=== PATIENT | male | born 1985 | race African-American/Black ===

== ENCOUNTER 2019-04-02 10:23 | Inpatient (IN) ==
[2019-04-02 11:38] LABS: Basophils % 0.5 % (0.0-0.8); Eosinophils # 0.2 10*3/uL (0.0-0.87); Eosinophils % 2.5 % (0.00-10.9); Hemoglobin 7.4 GM/DL (14.0-18.0); Immature Granulocytes % 0.5 %; Immature Granulocytes Absolute 0.04 #; Lymphocytes # 1.3 10*3/uL (1.4-4.0); Lymphocytes % 14.7 % (21.2-54.2); Mean Corpuscular HGB Conc 30.8 GM/DL (32-36); Mean Corpuscular Volume 104.3 FL (87-102); Mean Platelet Volume 11.8 FL (9.6-12.0); Monocytes % 10.9 % (1.7-12.7); Neutrophils % 70.9 % (38.7-73.9); Platelet Count 142 T/CUMM (130-400); Red Cell Distribution Width 16.4 % (9.3-17.3); White Blood Count 8.8 T/CUMM (4-12)
[2019-04-02 11:53] LABS: Albumin 2.8 G/DL (3.4-5.0); Bilirubin,Total 0.4 MG/DL (0.2-1.0); Calcium 8.5 MG/DL (8.5-10.1); Osmolality,Calculated 298.5 MOS/KG (273-304)
[2019-04-02] MEDS ORDERED: hydrALAZINE 20 MG/1 ML VIAL ONE (12:15)
[2019-04-02] MEDS ORDERED: guaiFENesin 200 MG/10 ML UDCUP ONE (12:16)
[2019-04-02] MEDS ORDERED: ONDANSETRON 4 MG/2 ML VIAL ONE (12:16)
[2019-04-02] MEDS ORDERED: LACTULOSE 20 GM/30 ML UDCUP PO PRN (12:34)
[2019-04-02] MEDS ORDERED: BISACODYL 5 MG TABLET PO PRN (12:34)
[2019-04-02] MEDS ORDERED: guaiFENesin/DM ER 600-30 MG TABLET PO PRN (12:34)
[2019-04-02] MEDS ORDERED: ONDANSETRON 4 MG/2 ML VIAL IV PRN (12:34)
[2019-04-02] MEDS ORDERED: PROMETHAZINE 25 MG TABLET PO PRN (12:34)
[2019-04-02] MEDS ORDERED: ACETAMINOPHEN 325 MG TABLET PO PRN (12:34)
[2019-04-02] MEDS ORDERED: PROMETHAZINE 25 MG/1 ML VIAL IM PRN (12:34)
[2019-04-02] MEDS ORDERED: ONDANSETRON 4 MG/2 ML VIAL IV STA (12:38)
[2019-04-02] MEDS ORDERED: guaiFENesin 200 MG/10 ML UDCUP PO STA (12:38)
[2019-04-02] MEDS ORDERED: hydrALAZINE 20 MG/1 ML VIAL IV STA (12:41)
[2019-04-02] MEDS ORDERED: levETIRAcetam 500 MG TABLET PO SCH (13:00)
[2019-04-02] MEDS ORDERED: hydrALAZINE 20 MG/1 ML VIAL IV PRN (13:58)
[2019-04-02] MEDS ORDERED: oxyCODONE IR 5 MG TABLET PO PRN (14:08)
[2019-04-02] MEDS ORDERED: ALBUTEROL 2.5 MG/3 ML NEB RESP TX PRN (14:36)
[2019-04-02 16:13] LABS: Hepatitis B Core IgM Quant < 0.05 Index; Hepatitis B Surface Ag Quant < 0.10 Index; Hepatitis B Surface Ag Result Negative (Negative); Hepatitis C Virus Ab Result Negative (Negative)
[2019-04-02] MEDS ORDERED: SEVELAMER CARBONATE 800 MG TABLET PO SCH (17:00)
[2019-04-02] MEDS: CARVEDILOL 25 MG TABLET PO SCH (18:53)
[2019-04-02] MEDS: SEVELAMER CARBONATE 800 MG TABLET PO SCH ×2 (18:53→21:17)
[2019-04-02] MEDS: amLODIPine 10 MG TABLET PO SCH (18:53)
[2019-04-02] MEDS: PANTOPRAZOLE 40 MG TABLET PO SCH (18:53)
[2019-04-02] MEDS: LACOSAMIDE 50 MG TABLET PO SCH ×2 (18:54→21:17)
[2019-04-02] MEDS ORDERED: LACOSAMIDE 100 MG PO SCH (21:00)
[2019-04-02] MEDS ORDERED: LAMIVUDINE PO SCH (21:00)
[2019-04-02] MEDS ORDERED: valACYclovir 500 MG TABLET PO SCH (21:00)
[2019-04-02] MEDS: ZOLPIDEM 5 MG TABLET PO PRN (21:16)
[2019-04-02] MEDS: levETIRAcetam 500 MG TABLET PO SCH (21:17)
[2019-04-02] MEDS: LAMIVUDINE 10 MG/ML PO SCH (21:35)
[2019-04-03 05:13] LABS: Basophils % 0.4 % (0.0-0.8); Eosinophils # 0.1 10*3/uL (0.0-0.87); Eosinophils % 1.2 % (0.00-10.9); Hematocrit 24.3 VOL% (42.0-52.0); Hemoglobin 7.6 GM/DL (14.0-18.0); Immature Granulocytes % 0.4 %; Immature Granulocytes Absolute 0.03 #; Lymphocytes # 1.6 10*3/uL (1.4-4.0); Mean Corpuscular HGB Conc 31.3 GM/DL (32-36); Mean Corpuscular Volume 102.1 FL (87-102); Mean Platelet Volume 12.4 FL (9.6-12.0); Monocytes % 13.6 % (1.7-12.7); Neutrophils % 63.4 % (38.7-73.9); Platelet Count 129 T/CUMM (130-400); Red Blood Count 2.38 MC/CUMM (3.8-5.5); Red Cell Distribution Width 16.7 % (9.3-17.3); White Blood Count 7.8 T/CUMM (4-12)
[2019-04-03 05:18] LABS: Albumin 2.7 G/DL (3.4-5.0); Bilirubin,Total 0.6 MG/DL (0.2-1.0); Calcium 8.5 MG/DL (8.5-10.1)
[2019-04-03] MEDS ORDERED: LISINOPRIL 10 MG TABLET PO SCH (09:00)
[2019-04-03] MEDS: LISINOPRIL 10 MG TABLET PO SCH (13:46)
[2019-04-03] MEDS: LACOSAMIDE 50 MG TABLET PO SCH ×2 (13:46→21:17)
[2019-04-03] MEDS: SEVELAMER CARBONATE 800 MG TABLET PO SCH ×4 (13:47→21:17)
[2019-04-03] MEDS: CARVEDILOL 25 MG TABLET PO SCH ×2 (13:47→18:34)
[2019-04-03] MEDS: amLODIPine 10 MG TABLET PO SCH (13:47)
[2019-04-03] MEDS: levETIRAcetam 500 MG TABLET PO SCH ×2 (13:48→21:17)
[2019-04-03] MEDS: PANTOPRAZOLE 40 MG TABLET PO SCH (13:48)
[2019-04-03] MEDS: ZOLPIDEM 5 MG TABLET PO PRN (21:17)
[2019-04-03] MEDS: LAMIVUDINE 10 MG/ML PO SCH (21:17)
[2019-04-03] MEDS ORDERED: METOPROLOL TARTRATE 5 MG/5 ML VIAL IV ONE (21:49)
[2019-04-04 05:41] LABS: Basophils # 0.1 10*3/uL (0.0-0.2); Basophils % 1.3 % (0.0-0.8); Eosinophils # 0.2 10*3/uL (0.0-0.87); Eosinophils % 3.4 % (0.00-10.9); Hematocrit 26.1 VOL% (42.0-52.0); Immature Granulocytes % 2.1 %; Lymphocytes # 1.2 10*3/uL (1.4-4.0); Mean Corpuscular HGB Conc 30.7 GM/DL (32-36); Mean Corpuscular Volume 106.5 FL (87-102); Mean Platelet Volume 12.7 FL (9.6-12.0); Monocytes % 16.2 % (1.7-12.7); Platelet Count 93 T/CUMM (130-400); Red Blood Count 2.45 MC/CUMM (3.8-5.5); Red Cell Distribution Width 16.5 % (9.3-17.3); White Blood Count 4.7 T/CUMM (4-12)
[2019-04-04 05:55] LABS: Calcium 8.6 MG/DL (8.5-10.1); Osmolality,Calculated 285.5 MOS/KG (273-304)
[2019-04-04 06:35] LABS: Anisocytosis 1+; Lymphocytes 28 % (20-55); Platelet Estimate Decreased; Segmented Neutrophils 55 % (50-85); Total Cells Counted 100
[2019-04-04 08:45] VITALS: BP 158/105
[2019-04-04] MEDS: LISINOPRIL 10 MG TABLET PO SCH (09:02)
[2019-04-04] MEDS: amLODIPine 10 MG TABLET PO SCH (09:02)
[2019-04-04] MEDS: PANTOPRAZOLE 40 MG TABLET PO SCH (09:02)
[2019-04-04] MEDS: SEVELAMER CARBONATE 800 MG TABLET PO SCH (09:02)
[2019-04-04] MEDS: LACOSAMIDE 50 MG TABLET PO SCH (09:02)
[2019-04-04] MEDS: levETIRAcetam 500 MG TABLET PO SCH (09:02)
[2019-04-04] MEDS: CARVEDILOL 25 MG TABLET PO SCH (09:02)
== END 2019-04-04 11:40 | disposition home or self-care (01) | DRG 291 ==
LOC: EDBD → N.ED 10:23 → N.EDINP 12:34 → SUATTDRO 12:34 → N.TELEN 13:26
PROVIDERS: ADMIT Nurse Practitioner Acute Care; ATTEND Internal Medicine

== ENCOUNTER 2019-06-15 04:15 | Inpatient (IN) ==
[2019-06-15 05:05] LABS: Basophils % 0.1 % (0.0-0.8); Hematocrit 28.2 VOL% (42.0-52.0); Hemoglobin 8.9 GM/DL (14.0-18.0); Immature Granulocytes % 1.1 %; Lymphocytes % 22.3 % (21.2-54.2); Mean Corpuscular HGB Conc 31.6 GM/DL (32-36); Mean Corpuscular Volume 100.7 FL (87-102); Mean Platelet Volume 13.9 FL (9.6-12.0); Monocytes % 5.7 % (1.7-12.7); NRBC # 0.02 10*3/uL; Neutrophils % 70.8 % (38.7-73.9); Platelet Count 74 T/CUMM (130-400); Red Cell Distribution Width 14.7 % (9.3-17.3); White Blood Count 8.8 T/CUMM (4-12)
[2019-06-15] MEDS ORDERED: MORPHINE 4 MG/1 ML VIAL IV STA (05:13)
[2019-06-15] MEDS ORDERED: ONDANSETRON 4 MG/2 ML VIAL IV ONE (05:13)
[2019-06-15 05:25] LABS: Band Neutrophils 5 % (0-10); Hypochromasia 1+; Lymphocytes 18 % (20-55); Platelet Estimate Decreased; Segmented Neutrophils 71 % (50-85); Total Cells Counted 100
[2019-06-15 05:32] LABS: Albumin 2.9 G/DL (3.4-5.0); Bilirubin,Total 0.5 MG/DL (0.2-1.0); Calcium 7.8 MG/DL (8.5-10.1); Osmolality,Calculated 284.1 MOS/KG (273-304); Total Protein 8.7 G/DL (6.4-8.3)
[2019-06-15] MEDS ORDERED: cefTRIAXone 1,000 MG in SODIUM CHLORIDE 0.9% 100 ML IV STA (06:02)
[2019-06-15] MEDS ORDERED: ONDANSETRON 4 MG/2 ML VIAL IV PRN (07:49)
[2019-06-15] MEDS ORDERED: ACETAMINOPHEN 325 MG TABLET PO PRN (07:49)
[2019-06-15] MEDS ORDERED: PROMETHAZINE 25 MG TABLET PO PRN (07:49)
[2019-06-15] MEDS ORDERED: VANCOMYCIN INJ 1,000 MG in SODIUM CHLORIDE 0.9% 250 ML IV ONE (07:51)
[2019-06-15] MEDS ORDERED: SKIN HEALING OINT (AQUAPHOR) 50 GM TUBE TOP PRN (07:54)
[2019-06-15] MEDS ORDERED: LACOSAMIDE 50 MG TABLET PO SCH (09:00)
[2019-06-15] MEDS ORDERED: CARVEDILOL 25 MG TABLET PO SCH (09:00)
[2019-06-15] MEDS ORDERED: levETIRAcetam 500 MG TABLET PO SCH ×2 (09:00→17:00)
[2019-06-15] MEDS ORDERED: PANTOPRAZOLE 40 MG TABLET PO SCH (09:00)
[2019-06-15] MEDS ORDERED: LORATADINE 10 MG TABLET PO SCH (09:00)
[2019-06-15] MEDS ORDERED: TRIAMCINOLONE 0.1% CREAM 15 GM TUBE TOP SCH (09:00)
[2019-06-15] MEDS ORDERED: guaiFENesin/DM ER 600-30 MG TABLET PO SCH (09:00)
[2019-06-15 10:04] VITALS: BP 127/83
[2019-06-15] MEDS ORDERED: MEROPENEM 500 MG in SYRINGE 1 EACH IV SCH (10:05)
[2019-06-15] MEDS ORDERED: VANCOMYCIN INJ 500 MG in SODIUM CHLORIDE 0.9% 100 ML IV PRN (10:09)
[2019-06-15] MEDS ORDERED: VANCOMYCIN INJ 1,500 MG in SODIUM CHLORIDE 0.9% 500 ML IV ONE (10:30)
[2019-06-15] MEDS ORDERED: SEVELAMER CARBONATE 800 MG TABLET PO SCH (12:00)
[2019-06-15] MEDS ORDERED: ALBUTEROL/IPRATROPIUM 3 ML NEB RESP TX SCH (13:00)
[2019-06-15 13:16] LABS: Hepatitis B Core IgM Quant < 0.05 Index; Hepatitis B Surface Ag Quant < 0.10 Index; Hepatitis B Surface Ag Result Negative (Negative); Hepatitis C Virus Ab Quant 0.16 Index; Hepatitis C Virus Ab Result Negative (Negative)
[2019-06-15] MEDS ORDERED: valACYclovir 500 MG TABLET PO SCH (17:00)
[2019-06-15] MEDS ORDERED: LAMIVUDINE PO SCH (21:00)
[2019-06-15] MEDS ORDERED: amLODIPine 10 MG TABLET PO SCH (21:00)
== END 2019-06-15 11:30 | disposition left against medical advice (07) | DRG 193 ==
LOC: N.ED 04:15 → N.EDINP 07:49 → N.5E 09:29
PROVIDERS: ADMIT Internal Medicine; ATTEND Internal Medicine

== ENCOUNTER 2019-07-31 11:52 | Inpatient (IN) ==
[2019-07-31] MEDS ORDERED: MORPHINE 4 MG/1 ML VIAL IV ONE (13:46)
[2019-07-31] MEDS ORDERED: ONDANSETRON 4 MG/2 ML VIAL IV ONE (13:46)
[2019-07-31 14:23] LABS: Basophils % 0.2 % (0.0-0.8); Hematocrit 28.3 VOL% (42.0-52.0); Hemoglobin 8.8 GM/DL (14.0-18.0); Immature Granulocytes % 0.6 %; Immature Granulocytes Absolute 0.06 #; Lymphocytes # 1.6 10*3/uL (1.4-4.0); Lymphocytes % 16.3 % (21.2-54.2); Mean Corpuscular HGB Conc 31.1 GM/DL (32-36); Mean Corpuscular Volume 106.4 FL (87-102); Mean Platelet Volume 12.3 FL (9.6-12.0); Monocytes % 5.4 % (1.7-12.7); NRBC # 0.23 10*3/uL; Neutrophils % 77.5 % (38.7-73.9); Platelet Count 181 T/CUMM (130-400); Red Blood Count 2.66 MC/CUMM (3.8-5.5); Red Cell Distribution Width 18.8 % (9.3-17.3); White Blood Count 9.8 T/CUMM (4-12)
[2019-07-31 14:29] LABS: INR 1.9
[2019-07-31 14:36] LABS: Albumin 3.3 G/DL (3.4-5.0); Bilirubin,Total 1.7 MG/DL (0.2-1.0); CKMB % 3.5 %; Calcium 8.9 MG/DL (8.5-10.1); Total Protein 8.9 G/DL (6.4-8.3)
[2019-07-31 14:37] LABS: Troponin I 0.712 NG/ML (0.00-0.045)
[2019-07-31] MEDS ORDERED: methylPREDNISolone SOD SUC 125 MG/2 ML VIAL IV STA (15:02)
[2019-07-31] MEDS ORDERED: PROMETHAZINE 25 MG/1 ML VIAL IM STA (15:03)
[2019-07-31] MEDS ORDERED: ACETAMINOPHEN 325 MG TABLET PO PRN (16:39)
[2019-07-31] MEDS ORDERED: LACTULOSE 20 GM/30 ML UDCUP PO PRN (16:39)
[2019-07-31] MEDS ORDERED: hydrALAZINE 20 MG/1 ML VIAL IV PRN (16:53)
[2019-07-31] MEDS ORDERED: MORPHINE 4 MG/1 ML VIAL IV PRN (16:57)
[2019-07-31 17:18] LABS: Thyroid Stimulating Hormone 8.37 uIU/ml (0.358-3.74)
[2019-07-31] MEDS: FAMOTIDINE 20 MG/2 ML VIAL IV SCH (18:36)
[2019-07-31] MEDS: HEPARIN 5,000 UNIT/1 ML VIAL SUBCUT SCH (18:36)
[2019-07-31] MEDS: HYDROmorphone 2 MG/1 ML VIAL IV PRN (20:33)
[2019-07-31] MEDS: ONDANSETRON 4 MG/2 ML VIAL IV PRN (20:33)
[2019-08-01] MEDS: HEPARIN 5,000 UNIT/1 ML VIAL SUBCUT SCH (01:54)
[2019-08-01] MEDS: FAMOTIDINE 20 MG/2 ML VIAL IV SCH (05:47)
[2019-08-01 06:12] LABS: Basophils % 0.1 % (0.0-0.8); Hematocrit 28.6 VOL% (42.0-52.0); Hemoglobin 8.9 GM/DL (14.0-18.0); Immature Granulocytes Absolute 0.08 #; Lymphocytes # 0.9 10*3/uL (1.4-4.0); Lymphocytes % 11.8 % (21.2-54.2); Mean Corpuscular HGB Conc 31.1 GM/DL (32-36); Mean Corpuscular Volume 104.8 FL (87-102); Mean Platelet Volume 11.9 FL (9.6-12.0); Monocytes % 2.1 % (1.7-12.7); NRBC # 0.29 10*3/uL; Platelet Count 180 T/CUMM (130-400); Red Blood Count 2.73 MC/CUMM (3.8-5.5); Red Cell Distribution Width 19.4 % (9.3-17.3)
[2019-08-01 06:36] LABS: Hypochromasia 1+; Lymphocytes 9 % (20-55); Nucleated Red Blood Cells 3 (0-5); Platelet Estimate Adequate; Segmented Neutrophils 88 % (50-85); Total Cells Counted 100
[2019-08-01 07:59] LABS: Calcium 7.5 MG/DL (8.5-10.1); Osmolality,Calculated 319.2 MOS/KG (273-304); Risk Ratio 5.58; VLDL CHOLESTEROL 50.4 MG/DL
[2019-08-01] MEDS: HYDROmorphone 2 MG/1 ML VIAL IV PRN (08:28)
[2019-08-01] MEDS: ONDANSETRON 4 MG/2 ML VIAL IV PRN ×2 (08:29→21:11)
[2019-08-01] MEDS ORDERED: SODIUM POLYSTYRENE SULFATE 15 GM/60 ML BOTTLE PO ONE (08:43)
[2019-08-01] MEDS ORDERED: PROMETHAZINE 25 MG TABLET PO PRN (14:30)
[2019-08-01] MEDS: levETIRAcetam 500 MG TABLET PO SCH (17:36)
[2019-08-01] MEDS: SEVELAMER CARBONATE 800 MG TABLET PO SCH ×2 (17:36→20:58)
[2019-08-01] MEDS: amLODIPine 10 MG TABLET PO SCH (20:59)
[2019-08-01] MEDS: CARVEDILOL 25 MG TABLET PO SCH (20:59)
[2019-08-01] MEDS: DOCUSATE SODIUM 100 MG CAPSULE PO SCH (20:59)
[2019-08-01] MEDS: ZALEPLON 5 MG CAPSULE PO SCH (21:03)
[2019-08-01] MEDS: oxyCODONE ER 10 MG TABLET PO SCH (21:03)
[2019-08-02 05:31] LABS: Basophils % 0.1 % (0.0-0.8); Eosinophils % 0.3 % (0.00-10.9); Hematocrit 26.1 VOL% (42.0-52.0); Hemoglobin 8.3 GM/DL (14.0-18.0); Immature Granulocytes % 0.7 %; Immature Granulocytes Absolute 0.05 #; Lymphocytes # 0.7 10*3/uL (1.4-4.0); Lymphocytes % 9.6 % (21.2-54.2); Mean Corpuscular HGB Conc 31.8 GM/DL (32-36); Mean Corpuscular Volume 102.8 FL (87-102); Mean Platelet Volume 11.9 FL (9.6-12.0); Monocytes % 6.8 % (1.7-12.7); NRBC # 0.36 10*3/uL; Neutrophils % 82.5 % (38.7-73.9); Platelet Count 157 T/CUMM (130-400); Red Blood Count 2.54 MC/CUMM (3.8-5.5); White Blood Count 6.9 T/CUMM (4-12)
[2019-08-02 06:00] LABS: Calcium 7.3 MG/DL (8.5-10.1); Osmolality,Calculated 303.1 MOS/KG (273-304)
[2019-08-02 09:02] LABS: Albumin 2.7 G/DL (3.4-5.0); Bilirubin,Direct 0.53 MG/DL (0.0-0.20); Bilirubin,Indirect 0.5 MG/DL (0.0-1.0); Total Protein 7.7 G/DL (6.4-8.3)
[2019-08-02] MEDS: oxyCODONE ER 10 MG TABLET PO SCH ×2 (10:58→22:59)
[2019-08-02] MEDS: CARVEDILOL 25 MG TABLET PO SCH ×2 (10:58→23:00)
[2019-08-02] MEDS: SEVELAMER CARBONATE 800 MG TABLET PO SCH ×4 (10:58→23:01)
[2019-08-02] MEDS: levETIRAcetam 500 MG TABLET PO SCH (10:59)
[2019-08-02] MEDS: DOCUSATE SODIUM 100 MG CAPSULE PO SCH ×2 (10:59→23:00)
[2019-08-02] MEDS: FAMOTIDINE 20 MG/2 ML VIAL IV SCH (11:02)
[2019-08-02] MEDS: ABACAVIR PO SCH (11:21)
[2019-08-02] MEDS: [UNRECOGNIZED DRUG - OTHER] PO SCH (11:22)
[2019-08-02] MEDS: LORATADINE 10 MG TABLET PO SCH (11:22)
[2019-08-02] MEDS: SODIUM CHLORIDE 0.9% 250 ML IV SCH (15:15)
[2019-08-02] MEDS: ONDANSETRON 4 MG/2 ML VIAL IV PRN (22:00)
[2019-08-02] MEDS: ZALEPLON 5 MG CAPSULE PO SCH (23:00)
[2019-08-02] MEDS: cloNIDine 0.1 MG TABLET PO SCH (23:00)
[2019-08-02] MEDS: amLODIPine 10 MG TABLET PO SCH (23:09)
[2019-08-03] MEDS: SODIUM CHLORIDE 0.9% 250 ML IV SCH (02:29)
[2019-08-03 07:15] LABS: INR 1.2; PT Patient Result 13.2 SECS (9.6-12.2)
[2019-08-03 08:39] LABS: Total Protein,Peritoneal Fluid 5.3 G/DL
[2019-08-03 08:42] LABS: RBC,Peritoneal Fluid 18 T/CUMM
[2019-08-03 08:43] LABS: Eosinophils # 0.1 10*3/uL (0.0-0.87); Eosinophils % 2.7 % (0.00-10.9); Hematocrit 27.1 VOL% (42.0-52.0); Hemoglobin 8.7 GM/DL (14.0-18.0); Immature Granulocytes Absolute 0.04 #; Lymphocytes # 0.9 10*3/uL (1.4-4.0); Lymphocytes % 22.4 % (21.2-54.2); Mean Corpuscular HGB Conc 32.1 GM/DL (32-36); Mean Corpuscular Volume 103.8 FL (87-102); Mean Platelet Volume 11.6 FL (9.6-12.0); Monocytes % 11.4 % (1.7-12.7); NRBC # 0.13 10*3/uL; Neutrophils % 62.5 % (38.7-73.9); Red Blood Count 2.61 MC/CUMM (3.8-5.5); Red Cell Distribution Width 20.5 % (9.3-17.3)
[2019-08-03 08:46] LABS: Platelet Count 119 T/CUMM (130-400)
[2019-08-03 09:19] LABS: Albumin 2.4 G/DL (3.4-5.0); Bilirubin,Direct 0.38 MG/DL (0.0-0.20); Bilirubin,Indirect 0.3 MG/DL (0.0-1.0); Bilirubin,Total 0.7 MG/DL (0.2-1.0); Free T4 (Free Thyroxine) 0.91 NG/DL (0.76-1.46); Total Protein 7.2 G/DL (6.4-8.3)
[2019-08-03] MEDS: levETIRAcetam 500 MG TABLET PO SCH ×2 (11:47→16:38)
[2019-08-03] MEDS: SEVELAMER CARBONATE 800 MG TABLET PO SCH ×4 (11:47→21:03)
[2019-08-03] MEDS: CARVEDILOL 25 MG TABLET PO SCH ×2 (11:48→21:03)
[2019-08-03] MEDS: cloNIDine 0.1 MG TABLET PO SCH ×2 (11:48→21:04)
[2019-08-03] MEDS: LORATADINE 10 MG TABLET PO SCH (11:48)
[2019-08-03] MEDS: ABACAVIR PO SCH (11:48)
[2019-08-03] MEDS: DOCUSATE SODIUM 100 MG CAPSULE PO SCH ×2 (11:48→21:02)
[2019-08-03] MEDS: [UNRECOGNIZED DRUG - OTHER] PO SCH (11:48)
[2019-08-03] MEDS: FAMOTIDINE 20 MG/2 ML VIAL IV SCH (11:49)
[2019-08-03] MEDS ORDERED: PROPOFOL 200 MG/20 ML VIAL IV ONE (12:00)
[2019-08-03] MEDS ORDERED: LIDOCAINE 2% 5 ML VIAL ONE (12:00)
[2019-08-03] MEDS ORDERED: PHENYLEPHRINE 1 MG/10 ML SYRINGE IV ONE (12:00)
[2019-08-03] MEDS: oxyCODONE ER 10 MG TABLET PO SCH ×2 (12:06→21:02)
[2019-08-03] MEDS: FLUCONAZOLE INJ 100 MG in IV BAG 1 EACH IV SCH (12:07)
[2019-08-03] MEDS: PANTOPRAZOLE 40 MG VIAL IV SCH ×2 (12:07→21:03)
[2019-08-03] MEDS: FENOFIBRATE 145 MG TABLET PO SCH (13:08)
[2019-08-03 14:02] LABS: Basophils % 0.3 % (0.0-0.8); Eosinophils # 0.1 10*3/uL (0.0-0.87); Eosinophils % 1.8 % (0.00-10.9); Hematocrit 28.4 VOL% (42.0-52.0); Immature Granulocytes % 0.3 %; Immature Granulocytes Absolute 0.01 #; Lymphocytes # 0.9 10*3/uL (1.4-4.0); Lymphocytes % 21.6 % (21.2-54.2); Mean Corpuscular HGB Conc 31.7 GM/DL (32-36); Mean Platelet Volume 11.4 FL (9.6-12.0); Monocytes % 14.3 % (1.7-12.7); NRBC # 0.09 10*3/uL; Neutrophils % 61.7 % (38.7-73.9); Platelet Count 116 T/CUMM (130-400); Red Blood Count 2.68 MC/CUMM (3.8-5.5)
[2019-08-03] MEDS: amLODIPine 10 MG TABLET PO SCH (21:03)
[2019-08-03] MEDS: ZALEPLON 5 MG CAPSULE PO SCH (21:03)
[2019-08-04 06:42] LABS: Calcium 8.2 MG/DL (8.5-10.1); Osmolality,Calculated 299.5 MOS/KG (273-304)
[2019-08-04] MEDS: HYDROmorphone 2 MG/1 ML VIAL IV PRN ×2 (10:19→15:42)
[2019-08-04] MEDS: ONDANSETRON 4 MG/2 ML VIAL IV PRN ×2 (10:19→15:42)
[2019-08-04] MEDS: [UNRECOGNIZED DRUG - OTHER] PO SCH (11:09)
[2019-08-04] MEDS: SEVELAMER CARBONATE 800 MG TABLET PO SCH ×4 (11:09→21:20)
[2019-08-04] MEDS: ABACAVIR PO SCH (11:09)
[2019-08-04] MEDS: FLUCONAZOLE INJ 100 MG in IV BAG 1 EACH IV SCH (13:11)
[2019-08-04] MEDS: PANTOPRAZOLE 40 MG VIAL IV SCH ×2 (13:11→21:22)
[2019-08-04] MEDS: levETIRAcetam 500 MG TABLET PO SCH ×2 (15:30→15:33)
[2019-08-04] MEDS: LORATADINE 10 MG TABLET PO SCH (15:30)
[2019-08-04] MEDS: oxyCODONE ER 10 MG TABLET PO SCH ×2 (15:31→23:32)
[2019-08-04] MEDS: CARVEDILOL 25 MG TABLET PO SCH ×2 (15:31→21:20)
[2019-08-04] MEDS: cloNIDine 0.1 MG TABLET PO SCH ×2 (15:31→21:21)
[2019-08-04] MEDS: FENOFIBRATE 145 MG TABLET PO SCH (15:33)
[2019-08-04] MEDS: DOCUSATE SODIUM 100 MG CAPSULE PO SCH ×2 (15:33→21:30)
[2019-08-04] MEDS: SUCRALFATE 1 GM/10 ML UDCUP PO SCH ×3 (15:34→21:19)
[2019-08-04] MEDS: FAMOTIDINE 20 MG/2 ML VIAL IV SCH (15:34)
[2019-08-04] MEDS: amLODIPine 10 MG TABLET PO SCH (21:20)
[2019-08-04] MEDS: ZALEPLON 5 MG CAPSULE PO SCH (23:32)
[2019-08-05] MEDS: SUCRALFATE 1 GM/10 ML UDCUP PO SCH ×4 (08:25→21:29)
[2019-08-05] MEDS: FENOFIBRATE 145 MG TABLET PO SCH (08:26)
[2019-08-05] MEDS: CARVEDILOL 25 MG TABLET PO SCH ×2 (08:26→21:30)
[2019-08-05] MEDS: oxyCODONE ER 10 MG TABLET PO SCH (08:26)
[2019-08-05] MEDS: SEVELAMER CARBONATE 800 MG TABLET PO SCH ×4 (08:26→21:30)
[2019-08-05] MEDS: levETIRAcetam 500 MG TABLET PO SCH ×2 (08:26→16:54)
[2019-08-05] MEDS: LORATADINE 10 MG TABLET PO SCH (08:27)
[2019-08-05] MEDS: FAMOTIDINE 20 MG/2 ML VIAL IV SCH (08:27)
[2019-08-05] MEDS: cloNIDine 0.1 MG TABLET PO SCH ×2 (08:27→21:29)
[2019-08-05] MEDS: PANTOPRAZOLE 40 MG VIAL IV SCH ×2 (08:27→21:33)
[2019-08-05] MEDS: DOCUSATE SODIUM 100 MG CAPSULE PO SCH ×2 (08:27→21:29)
[2019-08-05] MEDS: ABACAVIR PO SCH (08:27)
[2019-08-05] MEDS: [UNRECOGNIZED DRUG - OTHER] PO SCH (08:27)
[2019-08-05] MEDS: ONDANSETRON 4 MG/2 ML VIAL IV PRN ×2 (08:33→18:18)
[2019-08-05 10:30] LABS: Basophils % 0.5 % (0.0-0.8); Eosinophils # 0.1 10*3/uL (0.0-0.87); Eosinophils % 3.1 % (0.00-10.9); Hematocrit 30.4 VOL% (42.0-52.0); Hemoglobin 9.4 GM/DL (14.0-18.0); Immature Granulocytes % 0.2 %; Immature Granulocytes Absolute 0.01 #; Lymphocytes # 0.8 10*3/uL (1.4-4.0); Lymphocytes % 19.9 % (21.2-54.2); Mean Corpuscular HGB Conc 30.9 GM/DL (32-36); Mean Corpuscular Volume 105.2 FL (87-102); Mean Platelet Volume 11.7 FL (9.6-12.0); Monocytes % 10.4 % (1.7-12.7); NRBC # 0.03 10*3/uL; Neutrophils % 65.9 % (38.7-73.9); Platelet Count 103 T/CUMM (130-400); Red Blood Count 2.89 MC/CUMM (3.8-5.5); Red Cell Distribution Width 20.9 % (9.3-17.3); White Blood Count 4.2 T/CUMM (4-12)
[2019-08-05 10:52] LABS: Albumin 2.4 G/DL (3.4-5.0); Bilirubin,Total 0.7 MG/DL (0.2-1.0); Calcium 8.4 MG/DL (8.5-10.1); Osmolality,Calculated 287.7 MOS/KG (273-304); Total Protein 7.4 G/DL (6.4-8.3)
[2019-08-05] MEDS: FLUCONAZOLE INJ 100 MG in IV BAG 1 EACH IV SCH (12:15)
[2019-08-05] MEDS: HYDROmorphone 2 MG/1 ML VIAL IV PRN (18:17)
[2019-08-05] MEDS: amLODIPine 10 MG TABLET PO SCH (21:29)
[2019-08-06] MEDS: oxyCODONE ER 10 MG TABLET PO SCH ×4 (01:09→23:24)
[2019-08-06] MEDS: ZALEPLON 5 MG CAPSULE PO SCH ×2 (01:09→23:23)
[2019-08-06 05:39] LABS: Basophils % 0.5 % (0.0-0.8); Eosinophils # 0.2 10*3/uL (0.0-0.87); Eosinophils % 3.8 % (0.00-10.9); Hematocrit 29.5 VOL% (42.0-52.0); Hemoglobin 9.2 GM/DL (14.0-18.0); Immature Granulocytes % 0.5 %; Immature Granulocytes Absolute 0.02 #; Lymphocytes # 1.1 10*3/uL (1.4-4.0); Lymphocytes % 27.2 % (21.2-54.2); Mean Corpuscular HGB Conc 31.2 GM/DL (32-36); Mean Corpuscular Volume 104.2 FL (87-102); Mean Platelet Volume 11.5 FL (9.6-12.0); Monocytes % 11.3 % (1.7-12.7); Neutrophils % 56.7 % (38.7-73.9); Platelet Count 102 T/CUMM (130-400); Red Blood Count 2.83 MC/CUMM (3.8-5.5); Red Cell Distribution Width 19.9 % (9.3-17.3); White Blood Count 3.9 T/CUMM (4-12)
[2019-08-06 06:05] LABS: Calcium 8.3 MG/DL (8.5-10.1); Osmolality,Calculated 292.8 MOS/KG (273-304)
[2019-08-06] MEDS: DOCUSATE SODIUM 100 MG CAPSULE PO SCH ×2 (08:38→21:20)
[2019-08-06] MEDS: SUCRALFATE 1 GM/10 ML UDCUP PO SCH ×4 (08:38→21:19)
[2019-08-06] MEDS: FENOFIBRATE 145 MG TABLET PO SCH (08:38)
[2019-08-06] MEDS: SEVELAMER CARBONATE 800 MG TABLET PO SCH ×4 (08:38→21:20)
[2019-08-06] MEDS: levETIRAcetam 500 MG TABLET PO SCH (08:38)
[2019-08-06] MEDS: PANTOPRAZOLE 40 MG VIAL IV SCH ×2 (08:38→21:21)
[2019-08-06] MEDS: FAMOTIDINE 20 MG/2 ML VIAL IV SCH (08:39)
[2019-08-06] MEDS: FLUCONAZOLE INJ 100 MG in IV BAG 1 EACH IV SCH ×2 (08:39→10:16)
[2019-08-06] MEDS: LORATADINE 10 MG TABLET PO SCH (08:40)
[2019-08-06] MEDS: ABACAVIR PO SCH (08:40)
[2019-08-06] MEDS: [UNRECOGNIZED DRUG - OTHER] PO SCH (08:40)
[2019-08-06] MEDS: cloNIDine 0.1 MG TABLET PO SCH ×2 (09:59→21:20)
[2019-08-06] MEDS: CARVEDILOL 25 MG TABLET PO SCH ×2 (09:59→21:20)
[2019-08-06] MEDS: POLYETHYLENE GLYCOL POWDER 17 GM PACK PO SCH (12:22)
[2019-08-06] MEDS: NYSTATIN 500,000 UNIT/5 ML UDCUP SWISH/SWAL SCH ×2 (17:14→21:21)
[2019-08-06] MEDS: amLODIPine 10 MG TABLET PO SCH (21:20)
[2019-08-06 22:08] VITALS: BP 121/71
[2019-08-07 05:57] LABS: Basophils % 0.5 % (0.0-0.8); Eosinophils # 0.2 10*3/uL (0.0-0.87); Eosinophils % 3.8 % (0.00-10.9); Hemoglobin 9.2 GM/DL (14.0-18.0); Immature Granulocytes % 0.3 %; Immature Granulocytes Absolute 0.01 #; Lymphocytes % 25.1 % (21.2-54.2); Mean Corpuscular HGB Conc 31.7 GM/DL (32-36); Mean Corpuscular Volume 101.4 FL (87-102); Mean Platelet Volume 10.9 FL (9.6-12.0); Monocytes % 10.2 % (1.7-12.7); Neutrophils % 60.1 % (38.7-73.9); Platelet Count 105 T/CUMM (130-400); Red Blood Count 2.86 MC/CUMM (3.8-5.5); Red Cell Distribution Width 19.1 % (9.3-17.3); White Blood Count 3.9 T/CUMM (4-12)
[2019-08-07 06:28] LABS: Calcium 8.2 MG/DL (8.5-10.1)
[2019-08-07] MEDS: SEVELAMER CARBONATE 800 MG TABLET PO SCH (08:52)
[2019-08-07] MEDS: SUCRALFATE 1 GM/10 ML UDCUP PO SCH (08:52)
[2019-08-07] MEDS: DOCUSATE SODIUM 100 MG CAPSULE PO SCH (08:53)
[2019-08-07] MEDS: FENOFIBRATE 145 MG TABLET PO SCH (08:53)
[2019-08-07] MEDS: cloNIDine 0.1 MG TABLET PO SCH (08:53)
[2019-08-07] MEDS: NYSTATIN 500,000 UNIT/5 ML UDCUP SWISH/SWAL SCH (08:54)
[2019-08-07] MEDS: levETIRAcetam 500 MG TABLET PO SCH (08:54)
[2019-08-07] MEDS: CARVEDILOL 25 MG TABLET PO SCH (08:54)
[2019-08-07] MEDS: FAMOTIDINE 20 MG/2 ML VIAL IV SCH (08:55)
[2019-08-07] MEDS: PANTOPRAZOLE 40 MG VIAL IV SCH (08:55)
[2019-08-07] MEDS: POLYETHYLENE GLYCOL POWDER 17 GM PACK PO SCH (08:56)
[2019-08-07] MEDS: oxyCODONE ER 10 MG TABLET PO SCH (08:56)
== END 2019-08-07 09:30 | disposition home or self-care (01) | DRG 640 ==
LOC: N.EDINP 11:52 → N.ED 11:52 → N.5E 17:39 → SUATTDRO 08-01 14:18
PROVIDERS: ADMIT Hospitalist; ATTEND Internal Medicine

== ENCOUNTER 2019-09-05 18:42 | Observation (INO) ==
[2019-09-05] MEDS ORDERED: methylPREDNISolone SOD SUC 125 MG/2 ML VIAL IV STA (20:55)
[2019-09-05] MEDS ORDERED: ALBUTEROL/IPRATROPIUM 3 ML NEB RESP TX STA (20:55)
[2019-09-05 21:52] LABS: Basophils % 0.3 % (0.0-0.8); Eosinophils % 0.2 % (0.00-10.9); Hematocrit 34.6 VOL% (42.0-52.0); Hemoglobin 10.7 GM/DL (14.0-18.0); Immature Granulocytes % 0.4 %; Immature Granulocytes Absolute 0.04 #; Lymphocytes # 4.6 10*3/uL (1.4-4.0); Lymphocytes % 49.7 % (21.2-54.2); Mean Corpuscular HGB Conc 30.9 GM/DL (32-36); Mean Corpuscular Volume 102.1 FL (87-102); Mean Platelet Volume 12.5 FL (9.6-12.0); Monocytes % 7.3 % (1.7-12.7); NRBC # 0.19 10*3/uL; Neutrophils % 42.1 % (38.7-73.9); Platelet Count 113 T/CUMM (130-400); Red Blood Count 3.39 MC/CUMM (3.8-5.5); Red Cell Distribution Width 18.5 % (9.3-17.3); White Blood Count 9.3 T/CUMM (4-12)
[2019-09-05 22:09] LABS: INR 1.1; PT Patient Result 11.5 SECS (9.6-12.2)
[2019-09-05 22:13] LABS: Bilirubin,Total 0.8 MG/DL (0.2-1.0); Calcium 8.5 MG/DL (8.5-10.1); Osmolality,Calculated 295.4 MOS/KG (273-304); Total Protein 9.5 G/DL (6.4-8.3)
[2019-09-05] MEDS ORDERED: hydrALAZINE 20 MG/1 ML VIAL IV STA ×2 (22:25→23:48)
[2019-09-05] MEDS ORDERED: MORPHINE 4 MG/1 ML VIAL ONE (22:54)
[2019-09-05] MEDS ORDERED: MORPHINE 4 MG/1 ML VIAL IV STA (22:59)
[2019-09-06] MEDS ORDERED: NICOTINE 21 MG/24 HR PATCH TRANSDERM PRN (00:51)
[2019-09-06] MEDS ORDERED: ONDANSETRON 4 MG/2 ML VIAL IV PRN (00:51)
[2019-09-06] MEDS ORDERED: MORPHINE 4 MG/1 ML VIAL IV PRN (00:51)
[2019-09-06 05:22] LABS: Albumin 2.7 G/DL (3.4-5.0); Bilirubin,Total 0.8 MG/DL (0.2-1.0); Calcium 8.4 MG/DL (8.5-10.1); Osmolality,Calculated 302.3 MOS/KG (273-304); Total Protein 8.6 G/DL (6.4-8.3)
[2019-09-06] MEDS ORDERED: [UNRECOGNIZED DRUG - OTHER] PO SCH (09:00)
[2019-09-06] MEDS ORDERED: ABACAVIR PO SCH (09:00)
[2019-09-06] MEDS: SUCRALFATE 1 GM/10 ML UDCUP PO SCH ×3 (09:11→17:28)
[2019-09-06] MEDS: SEVELAMER CARBONATE 800 MG TABLET PO SCH ×3 (09:11→16:07)
[2019-09-06] MEDS: DOCUSATE SODIUM 100 MG CAPSULE PO SCH (09:12)
[2019-09-06] MEDS: LORATADINE 10 MG TABLET PO SCH (09:12)
[2019-09-06] MEDS: levETIRAcetam 500 MG TABLET PO SCH (09:12)
[2019-09-06] MEDS: cloNIDine 0.1 MG TABLET PO SCH (09:12)
[2019-09-06] MEDS: carvediloL 25 MG TABLET PO SCH ×2 (09:12→17:28)
[2019-09-06] MEDS: oxyCODONE/ACETAMINOPHEN 5-325 MG TABLET PO SCH ×2 (09:17→21:05)
[2019-09-06] MEDS: SEVELAMER CARBONATE POWDER 2.4 GM PACK PO SCH ×2 (09:17→15:15)
[2019-09-06] MEDS: methylPREDNISolone SOD SUC 40 MG/1 ML VIAL IV SCH (12:14)
[2019-09-06] MEDS: ALBUTEROL/IPRATROPIUM 3 ML NEB RESP TX SCH ×2 (13:42→20:05)
[2019-09-06] MEDS: AZITHROMYCIN INJ 500 MG in SODIUM CHLORIDE 0.9% 250 ML IV SCH (14:57)
[2019-09-06] MEDS: BENZONATATE 100 MG CAPSULE PO SCH (15:15)
[2019-09-06] MEDS ORDERED: ZOLPIDEM 5 MG TABLET PO SCH (21:00)
[2019-09-06] MEDS ORDERED: amLODIPine 10 MG TABLET PO SCH (21:00)
[2019-09-06] MEDS ORDERED: NON-FORMULARY MEDICATION (Zolpidem [Ambien] 10 MG) PO SCH (21:00)
[2019-09-06] MEDS: hydrALAZINE 20 MG/1 ML VIAL IV PRN (23:28)
[2019-09-07] MEDS: ALBUTEROL/IPRATROPIUM 3 ML NEB RESP TX SCH ×2 (00:33→07:40)
[2019-09-07] MEDS ORDERED: levETIRAcetam 500 MG TABLET PO SCH (00:53)
[2019-09-07] MEDS: methylPREDNISolone SOD SUC 40 MG/1 ML VIAL IV SCH ×3 (01:43→13:45)
[2019-09-07] MEDS: DOCUSATE SODIUM 100 MG CAPSULE PO SCH ×2 (01:44→13:44)
[2019-09-07] MEDS: cloNIDine 0.1 MG TABLET PO SCH ×2 (01:44→13:44)
[2019-09-07] MEDS: SEVELAMER CARBONATE POWDER 2.4 GM PACK PO SCH ×2 (01:44→08:29)
[2019-09-07] MEDS: SEVELAMER CARBONATE 800 MG TABLET PO SCH ×2 (01:44→13:45)
[2019-09-07] MEDS: SUCRALFATE 1 GM/10 ML UDCUP PO SCH ×3 (01:44→13:45)
[2019-09-07] MEDS: BENZONATATE 100 MG CAPSULE PO SCH ×2 (01:45→13:45)
[2019-09-07] MEDS ORDERED: hydrALAZINE 20 MG/1 ML VIAL IV ONE (02:45)
[2019-09-07] MEDS: hydrALAZINE 20 MG/1 ML VIAL IV PRN (03:01)
[2019-09-07 04:07] LABS: Basophils % 0.2 % (0.0-0.8); Hematocrit 35.1 VOL% (42.0-52.0); Hemoglobin 10.5 GM/DL (14.0-18.0); Immature Granulocytes % 1.3 %; Immature Granulocytes Absolute 0.08 #; Lymphocytes # 1.4 10*3/uL (1.4-4.0); Lymphocytes % 23.7 % (21.2-54.2); Mean Corpuscular HGB Conc 29.9 GM/DL (32-36); Mean Corpuscular Volume 103.8 FL (87-102); Mean Platelet Volume 12.8 FL (9.6-12.0); Monocytes % 3.2 % (1.7-12.7); NRBC # 0.37 10*3/uL; Neutrophils % 71.6 % (38.7-73.9); Platelet Count 106 T/CUMM (130-400); Red Blood Count 3.38 MC/CUMM (3.8-5.5); Red Cell Distribution Width 18.8 % (9.3-17.3)
[2019-09-07 04:35] LABS: Atypical Lymphocytes Few; Hypochromasia Slight; Lymphocytes 19 % (20-55); Nucleated Red Blood Cells 5 (0-5); Ovalocytes Slight; Polychromasia Slight; Segmented Neutrophils 80 % (50-85); Total Cells Counted 100
[2019-09-07 04:36] LABS: Macrocytosis 1+
[2019-09-07 04:37] LABS: Anisocytosis 1+; Platelet Estimate Decreased
[2019-09-07 04:41] LABS: Albumin 2.9 G/DL (3.4-5.0); Bilirubin,Total 1.4 MG/DL (0.2-1.0); Calcium 8.9 MG/DL (8.5-10.1); Osmolality,Calculated 305.7 MOS/KG (273-304); Total Protein 8.8 G/DL (6.4-8.3)
[2019-09-07 07:52] VITALS: BP 144/96
[2019-09-07] MEDS ORDERED: SODIUM POLYSTYRENE SULFATE 15 GM/60 ML BOTTLE PO ONE (08:03)
[2019-09-07] MEDS: LORATADINE 10 MG TABLET PO SCH (13:44)
[2019-09-07] MEDS: levETIRAcetam 500 MG TABLET PO SCH (13:44)
[2019-09-07] MEDS: carvediloL 25 MG TABLET PO SCH (13:44)
[2019-09-07] MEDS: oxyCODONE/ACETAMINOPHEN 5-325 MG TABLET PO SCH (13:45)
[2019-09-07] MEDS: AZITHROMYCIN INJ 500 MG in SODIUM CHLORIDE 0.9% 250 ML IV SCH (13:45)
== END 2019-09-07 13:47 | disposition home or self-care (01) ==
LOC: N.EDINP 18:42 → N.ED 18:42 → SUATTDRO 09-06 00:51 → N.TELEN 09-06 02:00
PROVIDERS: ATTEND Internal Medicine Cardiovascular Disease

== ENCOUNTER 2019-10-21 01:52 | Observation (INO) ==
[2019-10-21] MEDS ORDERED: ASPIRIN 325 MG TABLET PO STA (02:46)
[2019-10-21] MEDS ORDERED: NITROGLYCERIN 2% OINT 1 INCH/GM PACK TOP STA (02:46)
[2019-10-21 02:58] LABS: Basophils % 0.4 % (0.0-0.8); Eosinophils # 0.2 10*3/uL (0.0-0.87); Eosinophils % 4.2 % (0.00-10.9); Hematocrit 30.6 VOL% (42.0-52.0); Hemoglobin 9.8 GM/DL (14.0-18.0); Immature Granulocytes % 0.6 %; Immature Granulocytes Absolute 0.03 #; Lymphocytes # 1.8 10*3/uL (1.4-4.0); Mean Corpuscular Volume 95.9 FL (87-102); Mean Platelet Volume 13.2 FL (9.6-12.0); Monocytes % 7.4 % (1.7-12.7); Neutrophils % 49.4 % (38.7-73.9); Red Blood Count 3.19 MC/CUMM (3.8-5.5); White Blood Count 4.8 T/CUMM (4-12)
[2019-10-21 03:00] LABS: Platelet Count 67 T/CUMM (130-400)
[2019-10-21 03:11] LABS: PT Patient Result 10.8 SECS (9.6-12.2)
[2019-10-21 03:16] LABS: Bilirubin,Total 0.4 MG/DL (0.2-1.0); Calcium 6.9 MG/DL (8.5-10.1); Osmolality,Calculated 297.7 MOS/KG (273-304); Total Protein 8.3 G/DL (6.4-8.3)
[2019-10-21 03:21] LABS: Hypochromasia 2+; Ovalocytes 1+; Platelet Estimate Decreased
[2019-10-21] MEDS ORDERED: ONDANSETRON 4 MG/2 ML VIAL IV PRN (04:00)
[2019-10-21] MEDS ORDERED: DOCUSATE SODIUM 100 MG CAPSULE PO PRN (04:00)
[2019-10-21] MEDS ORDERED: ACETAMINOPHEN 325 MG TABLET PO PRN (04:00)
[2019-10-21] MEDS ORDERED: guaiFENesin/DM ER 600-30 MG TABLET PO PRN (04:00)
[2019-10-21] MEDS ORDERED: hydrALAZINE 20 MG/1 ML VIAL IV PRN (04:03)
[2019-10-21] MEDS: MORPHINE 4 MG/1 ML VIAL IV PRN ×3 (05:33→21:10)
[2019-10-21] MEDS ORDERED: CLOPIDOGREL 300 MG TABLET PO ONE (05:38)
[2019-10-21] MEDS ORDERED: HEPARIN 5,000 UNIT/1 ML VIAL IV ONE (05:54)
[2019-10-21] MEDS ORDERED: HEPARIN DRIP 25,000 UNITS/500 ML PREMIX IV SCH (06:00)
[2019-10-21 07:14] LABS: PT Patient Result 11.1 SECS (9.6-12.2)
[2019-10-21] MEDS: GABAPENTIN 100 MG CAPSULE PO SCH ×4 (09:46→21:03)
[2019-10-21] MEDS: levETIRAcetam 500 MG TABLET PO SCH (09:46)
[2019-10-21] MEDS: LORATADINE 10 MG TABLET PO SCH (09:46)
[2019-10-21] MEDS: SEVELAMER CARBONATE 800 MG TABLET PO SCH ×5 (09:46→21:00)
[2019-10-21] MEDS: AZITHROMYCIN 250 MG TABLET PO SCH (09:46)
[2019-10-21] MEDS: cloNIDine 0.1 MG TABLET PO SCH ×2 (09:47→21:04)
[2019-10-21] MEDS: carvediloL 3.125 MG TABLET PO SCH ×3 (09:48→21:09)
[2019-10-21] MEDS: methylPREDNISolone SOD SUC 40 MG/1 ML VIAL IV SCH ×2 (09:48→21:09)
[2019-10-21] MEDS: DOCUSATE SODIUM 100 MG CAPSULE PO SCH ×2 (10:04→21:02)
[2019-10-21] MEDS: ALBUTEROL/IPRATROPIUM 3 ML NEB RESP TX SCH ×4 (10:50→23:20)
[2019-10-21] MEDS: SUCRALFATE 1 GM/10 ML UDCUP PO SCH ×3 (12:15→21:04)
[2019-10-21] MEDS ORDERED: levETIRAcetam 500 MG TABLET PO SCH (18:00)
[2019-10-21] MEDS ORDERED: [UNRECOGNIZED DRUG - OTHER] PO SCH (21:00)
[2019-10-21] MEDS ORDERED: ABACAVIR PO SCH (21:00)
[2019-10-21] MEDS ORDERED: ZALEPLON 5 MG CAPSULE PO SCH (21:00)
[2019-10-21] MEDS ORDERED: amLODIPine 10 MG TABLET PO SCH (21:00)
[2019-10-22] MEDS: ALBUTEROL/IPRATROPIUM 3 ML NEB RESP TX SCH ×2 (03:57→07:18)
[2019-10-22] MEDS: MORPHINE 4 MG/1 ML VIAL IV PRN (04:45)
[2019-10-22 06:35] LABS: Basophils % 0.2 % (0.0-0.8); Hematocrit 29.6 VOL% (42.0-52.0); Hemoglobin 9.6 GM/DL (14.0-18.0); Immature Granulocytes % 0.7 %; Immature Granulocytes Absolute 0.03 #; Lymphocytes # 1.2 10*3/uL (1.4-4.0); Lymphocytes % 27.1 % (21.2-54.2); Mean Corpuscular HGB Conc 32.4 GM/DL (32-36); Mean Corpuscular Volume 94.9 FL (87-102); Mean Platelet Volume 12.8 FL (9.6-12.0); Monocytes % 5.8 % (1.7-12.7); Neutrophils % 66.2 % (38.7-73.9); Platelet Count 64 T/CUMM (130-400); Red Blood Count 3.12 MC/CUMM (3.8-5.5); White Blood Count 4.3 T/CUMM (4-12)
[2019-10-22 06:58] LABS: Albumin 2.6 G/DL (3.4-5.0); Bilirubin,Total 0.8 MG/DL (0.2-1.0); Calcium 7.4 MG/DL (8.5-10.1); Osmolality,Calculated 286.8 MOS/KG (273-304); Risk Ratio 4.44; VLDL CHOLESTEROL 22.4 MG/DL
[2019-10-22 07:07] LABS: Lymphocytes 26 % (20-55); Platelet Estimate Decreased; Segmented Neutrophils 73 % (50-85); Total Cells Counted 100
[2019-10-22] MEDS: cloNIDine 0.1 MG TABLET PO SCH (09:01)
[2019-10-22] MEDS: GABAPENTIN 100 MG CAPSULE PO SCH (09:01)
[2019-10-22] MEDS: levETIRAcetam 500 MG TABLET PO SCH (09:01)
[2019-10-22] MEDS: LORATADINE 10 MG TABLET PO SCH (09:01)
[2019-10-22] MEDS: carvediloL 3.125 MG TABLET PO SCH (09:01)
[2019-10-22] MEDS: AZITHROMYCIN 250 MG TABLET PO SCH (09:01)
[2019-10-22] MEDS: SUCRALFATE 1 GM/10 ML UDCUP PO SCH (09:02)
[2019-10-22] MEDS: SEVELAMER CARBONATE 800 MG TABLET PO SCH (09:02)
[2019-10-22] MEDS: DOCUSATE SODIUM 100 MG CAPSULE PO SCH (09:02)
[2019-10-22] MEDS: methylPREDNISolone SOD SUC 40 MG/1 ML VIAL IV SCH (09:02)
[2019-10-22 10:08] VITALS: BP 136/90
== END 2019-10-22 11:01 | disposition home or self-care (01) ==
LOC: N.ED 01:52 → N.EDINP 01:52 → N.TELES 04:23
PROVIDERS: ADMIT Internal Medicine; ATTEND Internal Medicine

== ENCOUNTER 2019-11-05 11:22 | Inpatient (IN) ==
[2019-11-05] MEDS ORDERED: ONDANSETRON 4 MG/2 ML VIAL IV STA (11:55)
[2019-11-05] MEDS ORDERED: methylPREDNISolone SOD SUC 125 MG/2 ML VIAL IV STA (11:55)
[2019-11-05] MEDS ORDERED: ORPHENADRINE 60 MG/2 ML VIAL IV STA (11:57)
[2019-11-05 12:33] LABS: Basophils % 0.7 % (0.0-0.8); Eosinophils # 0.2 10*3/uL (0.0-0.87); Hematocrit 30.1 VOL% (42.0-52.0); Hemoglobin 9.5 GM/DL (14.0-18.0); Immature Granulocytes % 1.5 %; Immature Granulocytes Absolute 0.07 #; Lymphocytes # 1.3 10*3/uL (1.4-4.0); Lymphocytes % 28.9 % (21.2-54.2); Mean Corpuscular HGB Conc 31.6 GM/DL (32-36); Mean Platelet Volume 11.9 FL (9.6-12.0); Monocytes % 8.2 % (1.7-12.7); Neutrophils % 55.7 % (38.7-73.9); Platelet Count 119 T/CUMM (130-400); Red Blood Count 3.17 MC/CUMM (3.8-5.5); Red Cell Distribution Width 16.8 % (9.3-17.3); White Blood Count 4.6 T/CUMM (4-12)
[2019-11-05 12:59] LABS: Alanine Aminotransferase 23 U/L (16-61); Albumin 2.9 G/DL (3.4-5.0); Alkaline Phosphatase 127 U/L (45-117); Aspartate Amino Transferase 31 U/L (0-37); Blood Urea Nitrogen 55 MG/DL (7-18); Calcium 8.5 MG/DL (8.5-10.1); Estimated Glom Filtration Rate 4 ML/MIN; Glucose 84 MG/DL (74-106); Osmolality,Calculated 288.7 MOS/KG (273-304); Total Protein 9.2 G/DL (6.4-8.3)
[2019-11-05 13:03] LABS: Troponin I 0.234 NG/ML (0.00-0.045)
[2019-11-05] MEDS ORDERED: AZITHROMYCIN INJ 500 MG in SODIUM CHLORIDE 0.9% 250 ML IV STA (14:39)
[2019-11-05] MEDS ORDERED: ALBUTEROL 2.5 MG/3 ML NEB RESP TX PRN (15:27)
[2019-11-05] MEDS ORDERED: guaiFENesin/DM ER 600-30 MG TABLET PO PRN (15:27)
[2019-11-05] MEDS ORDERED: ACETAMINOPHEN 325 MG TABLET PO PRN (15:27)
[2019-11-05] MEDS ORDERED: DOCUSATE SODIUM 100 MG CAPSULE PO PRN (15:27)
[2019-11-05] MEDS ORDERED: ONDANSETRON 4 MG/2 ML VIAL IV PRN (15:27)
[2019-11-05] MEDS ORDERED: traZODone 50 MG TABLET PO PRN (15:27)
[2019-11-05] MEDS ORDERED: ENOXAPARIN 30 MG/0.3 ML SYRINGE SUBCUT SCH (15:30)
[2019-11-05] MEDS ORDERED: LEVOFLOXACIN INJ 750 MG in PREMIX 1 EACH IV ONE (16:00)
[2019-11-05] MEDS ORDERED: FLUCONAZOLE 200 MG TABLET PO SCH (16:00)
[2019-11-05 16:07] LABS: INR 1.1; PT Patient Result 11.4 SECS (9.6-12.2); Partial Thromboplastin Time 30.6 SECS (20.8-36.0)
[2019-11-05] MEDS ORDERED: VANCOMYCIN INJ 500 MG in SODIUM CHLORIDE 0.9% 100 ML IV PRN (16:13)
[2019-11-05] MEDS: SEVELAMER CARBONATE POWDER 2.4 GM PACK PO SCH (17:31)
[2019-11-05] MEDS ORDERED: KETOROLAC 30 MG/1 ML VIAL IV PRN (18:49)
[2019-11-05] MEDS: MEROPENEM 500 MG in SODIUM CHLORIDE 0.9% 100 ML IV SCH (19:36)
[2019-11-05] MEDS ORDERED: VANCOMYCIN INJ 1,500 MG in SODIUM CHLORIDE 0.9% 500 ML IV ONE (20:00)
[2019-11-05] MEDS: valACYclovir 500 MG TABLET PO SCH (20:17)
[2019-11-05] MEDS: carvediloL 3.125 MG TABLET PO SCH (20:17)
[2019-11-05] MEDS: cloNIDine 0.1 MG TABLET PO SCH (20:19)
[2019-11-05] MEDS: ZALEPLON 5 MG CAPSULE PO SCH ×2 (20:21→21:10)
[2019-11-05] MEDS: NON-FORMULARY MEDICATION (Dolutegravir [Tivicay] 50 MG) PO SCH (20:23)
[2019-11-05] MEDS: ABACAVIR PO SCH (20:23)
[2019-11-05] MEDS: [UNRECOGNIZED DRUG - OTHER] PO SCH (20:23)
[2019-11-05] MEDS ORDERED: amLODIPine 10 MG TABLET PO SCH (21:00)
[2019-11-05] MEDS ORDERED: MORPHINE 4 MG/1 ML VIAL IV PRN (22:20)
[2019-11-06 05:24] LABS: Basophils % 0.2 % (0.0-0.8); Hemoglobin 8.2 GM/DL (14.0-18.0); Immature Granulocytes % 1.2 %; Immature Granulocytes Absolute 0.05 #; Lymphocytes # 1.2 10*3/uL (1.4-4.0); Lymphocytes % 28.8 % (21.2-54.2); Mean Corpuscular HGB Conc 31.5 GM/DL (32-36); Mean Corpuscular Volume 95.6 FL (87-102); Mean Platelet Volume 11.9 FL (9.6-12.0); Monocytes % 6.6 % (1.7-12.7); Neutrophils % 63.2 % (38.7-73.9); Platelet Count 106 T/CUMM (130-400); Red Blood Count 2.72 MC/CUMM (3.8-5.5); Red Cell Distribution Width 16.8 % (9.3-17.3); White Blood Count 4.1 T/CUMM (4-12)
[2019-11-06 05:50] LABS: Albumin 2.5 G/DL (3.4-5.0); Bilirubin,Total 0.4 MG/DL (0.2-1.0); Calcium 7.9 MG/DL (8.5-10.1); Osmolality,Calculated 298.5 MOS/KG (273-304); Total Protein 8.3 G/DL (6.4-8.3)
[2019-11-06] MEDS: valACYclovir 500 MG TABLET PO SCH ×2 (09:05→21:23)
[2019-11-06] MEDS: carvediloL 3.125 MG TABLET PO SCH ×2 (09:05→21:24)
[2019-11-06] MEDS: cloNIDine 0.1 MG TABLET PO SCH ×2 (09:05→21:25)
[2019-11-06] MEDS: levETIRAcetam 500 MG TABLET PO SCH (09:06)
[2019-11-06] MEDS: SEVELAMER CARBONATE POWDER 2.4 GM PACK PO SCH ×3 (09:07→16:55)
[2019-11-06] MEDS: MEROPENEM 500 MG in SODIUM CHLORIDE 0.9% 100 ML IV SCH (16:55)
[2019-11-06] MEDS: SPIRONOLACTONE 25 MG TABLET PO SCH (21:24)
[2019-11-06] MEDS: ZALEPLON 5 MG CAPSULE PO SCH (21:49)
[2019-11-06] MEDS: ABACAVIR PO SCH (23:27)
[2019-11-06] MEDS: [UNRECOGNIZED DRUG - OTHER] PO SCH (23:27)
[2019-11-06] MEDS: NON-FORMULARY MEDICATION (Dolutegravir [Tivicay] 50 MG) PO SCH (23:27)
[2019-11-07] MEDS: SPIRONOLACTONE 25 MG TABLET PO SCH (01:10)
[2019-11-07] MEDS ORDERED: VANCOMYCIN INJ 500 MG in SODIUM CHLORIDE 0.9% 100 ML IV ONE ×2 (11:30→17:00)
[2019-11-07] MEDS: carvediloL 3.125 MG TABLET PO SCH ×2 (14:29→21:21)
[2019-11-07] MEDS: SEVELAMER CARBONATE POWDER 2.4 GM PACK PO SCH ×3 (14:29→17:08)
[2019-11-07] MEDS: cloNIDine 0.1 MG TABLET PO SCH ×2 (14:29→21:22)
[2019-11-07] MEDS: valACYclovir 500 MG TABLET PO SCH ×2 (14:29→21:21)
[2019-11-07] MEDS: levETIRAcetam 500 MG TABLET PO SCH (14:30)
[2019-11-07] MEDS ORDERED: LEVOFLOXACIN INJ 500 MG in PREMIX 1 EACH IV SCH (16:00)
[2019-11-07] MEDS ORDERED: levETIRAcetam 500 MG TABLET PO SCH (17:00)
[2019-11-07] MEDS: ABACAVIR PO SCH (21:22)
[2019-11-07] MEDS: ZALEPLON 5 MG CAPSULE PO SCH (21:22)
[2019-11-07] MEDS: [UNRECOGNIZED DRUG - OTHER] PO SCH (21:23)
[2019-11-07] MEDS: NON-FORMULARY MEDICATION (Dolutegravir [Tivicay] 50 MG) PO SCH (21:23)
[2019-11-07] MEDS: BUDESONIDE/FORMOTEROL 160-4.5 INHALER 6 GM INH SCH (21:28)
[2019-11-08 05:02] LABS: Basophils % 0.3 % (0.0-0.8); Eosinophils # 0.2 10*3/uL (0.0-0.87); Hematocrit 27.5 VOL% (42.0-52.0); Hemoglobin 8.9 GM/DL (14.0-18.0); Immature Granulocytes % 0.8 %; Immature Granulocytes Absolute 0.05 #; Lymphocytes # 1.3 10*3/uL (1.4-4.0); Lymphocytes % 21.2 % (21.2-54.2); Mean Corpuscular HGB Conc 32.4 GM/DL (32-36); Mean Corpuscular Volume 94.2 FL (87-102); Mean Platelet Volume 12.2 FL (9.6-12.0); Monocytes % 9.5 % (1.7-12.7); Neutrophils % 65.2 % (38.7-73.9); Red Blood Count 2.92 MC/CUMM (3.8-5.5)
[2019-11-08 05:15] LABS: Calcium 7.9 MG/DL (8.5-10.1); Osmolality,Calculated 293.4 MOS/KG (273-304)
[2019-11-08 05:24] LABS: Platelet Count 89 T/CUMM (130-400)
[2019-11-08 05:25] LABS: White Blood Count 6.2 T/CUMM (4-12)
[2019-11-08] MEDS: cloNIDine 0.1 MG TABLET PO SCH (08:48)
[2019-11-08] MEDS: valACYclovir 500 MG TABLET PO SCH (08:48)
[2019-11-08] MEDS: carvediloL 3.125 MG TABLET PO SCH (08:49)
[2019-11-08] MEDS: SEVELAMER CARBONATE POWDER 2.4 GM PACK PO SCH ×2 (08:50→12:45)
[2019-11-08] MEDS: levETIRAcetam 500 MG TABLET PO SCH (08:51)
[2019-11-08] MEDS: BUDESONIDE/FORMOTEROL 160-4.5 INHALER 6 GM INH SCH (08:52)
[2019-11-08] MEDS ORDERED: SODIUM CHLORIDE 0.9% 250 ML IV ONE (12:10)
[2019-11-08] MEDS ORDERED: SODIUM CHLORIDE 0.9% 250 ML IV PRN (12:11)
[2019-11-08 12:59] VITALS: BP 123/79
== END 2019-11-08 15:15 | disposition home or self-care (01) | DRG 291 ==
LOC: N.ED 11:22 → N.EDINP 15:56 → SUATTDRO 15:56 → N.TELEN 16:02
PROVIDERS: ADMIT Internal Medicine; ATTEND Family Medicine

== ENCOUNTER 2020-01-10 19:02 | Inpatient (IN) ==
[2020-01-10] MEDS ORDERED: ONDANSETRON 4 MG/2 ML VIAL IV STA (19:29)
[2020-01-10] MEDS ORDERED: PANTOPRAZOLE 40 MG VIAL IV STA (19:29)
[2020-01-10] MEDS ORDERED: METOCLOPRAMIDE 10 MG/2 ML VIAL IV STA (19:29)
[2020-01-10] MEDS ORDERED: fentaNYL 100 MCG/2 ML VIAL IV STA (19:39)
[2020-01-10 19:43] LABS: Basophils % 0.3 % (0.0-0.8); Hematocrit 31.7 VOL% (42.0-52.0); Hemoglobin 10.1 GM/DL (14.0-18.0); Immature Granulocytes % 0.3 %; Immature Granulocytes Absolute 0.02 #; Lymphocytes # 1.9 10*3/uL (1.4-4.0); Lymphocytes % 30.8 % (21.2-54.2); Mean Corpuscular HGB Conc 31.9 GM/DL (32-36); Mean Corpuscular Volume 99.7 FL (87-102); Mean Platelet Volume 11.9 FL (9.6-12.0); Monocytes % 8.6 % (1.7-12.7); NRBC # 0.03 10*3/uL; Platelet Count 134 T/CUMM (130-400); Red Blood Count 3.18 MC/CUMM (3.8-5.5); Red Cell Distribution Width 16.3 % (9.3-17.3); White Blood Count 6.3 T/CUMM (4-12)
[2020-01-10 19:53] LABS: INR 1.2; PT Patient Result 12.7 SECS (9.6-12.2); Partial Thromboplastin Time 30.2 SECS (20.8-36.0)
[2020-01-10 20:06] LABS: Alanine Aminotransferase 38 U/L (16-61); Albumin 3.5 G/DL (3.4-5.0); Alkaline Phosphatase 156 U/L (45-117); Aspartate Amino Transferase 78 U/L (0-37); Blood Urea Nitrogen 101 MG/DL (7-18); Calcium 8.8 MG/DL (8.5-10.1); Estimated Glom Filtration Rate 3 ML/MIN; Glucose 78 MG/DL (74-106); Osmolality,Calculated 298.2 MOS/KG (273-304); Total Protein 9.3 G/DL (6.4-8.3); Troponin I 0.324 NG/ML (0.00-0.045)
[2020-01-10] MEDS ORDERED: ALBUTEROL NEB SOLN 5 MG/ML 20 ML/BOTTLE CONT NEB STA (21:00)
[2020-01-10] MEDS ORDERED: CALCIUM CHLORIDE 1,000 MG/10 ML SYRINGE IV STA (21:00)
[2020-01-10] MEDS ORDERED: DEXTROSE 50% 25 GM/50 ML VIAL IV STA (21:10)
[2020-01-10] MEDS ORDERED: INSULIN REGULAR 100 UNIT/ML IV ONE (21:10)
[2020-01-10] MEDS ORDERED: DEXTROSE 50% 25 GM/50 ML SYRINGE IV ONE (21:13)
[2020-01-10] MEDS ORDERED: SODIUM POLYSTYRENE SULFATE 15 GM/60 ML BOTTLE PO STA (21:19)
[2020-01-10] MEDS: SODIUM BICARB INJ 100 MEQ in DEXTROSE 5% 1,000 ML IV SCH (22:01)
[2020-01-10] MEDS ORDERED: NICOTINE 21 MG/24 HR PATCH TRANSDERM PRN (22:40)
[2020-01-10] MEDS ORDERED: ONDANSETRON 4 MG/2 ML VIAL IV PRN (22:40)
[2020-01-10] MEDS ORDERED: DOCUSATE SODIUM 100 MG CAPSULE PO PRN (22:40)
[2020-01-10] MEDS ORDERED: PROMETHAZINE 25 MG/1 ML VIAL IM PRN (22:40)
[2020-01-10] MEDS ORDERED: ALBUTEROL 2.5 MG/3 ML NEB RESP TX PRN (22:40)
[2020-01-10] MEDS ORDERED: hydrALAZINE 20 MG/1 ML VIAL IV PRN (22:57)
[2020-01-10] MEDS ORDERED: FAMOTIDINE 20 MG/2 ML VIAL IV SCH (23:00)
[2020-01-11] MEDS ORDERED: PANTOPRAZOLE INJ 200 MG in SODIUM CHLORIDE 0.9% 250 ML IV SCH
[2020-01-11] MEDS ORDERED: SODIUM POLYSTYRENE SULFATE 15 GM/60 ML BOTTLE PO ONE (01:13)
[2020-01-11] MEDS ORDERED: METOCLOPRAMIDE 10 MG/2 ML VIAL IV ONE (01:13)
[2020-01-11] MEDS: MORPHINE 4 MG/1 ML VIAL IV PRN ×4 (04:28→21:31)
[2020-01-11 04:44] LABS: Basophils % 0.2 % (0.0-0.8); Hematocrit 28.2 VOL% (42.0-52.0); Hemoglobin 9.2 GM/DL (14.0-18.0); Immature Granulocytes % 0.6 %; Immature Granulocytes Absolute 0.03 #; Lymphocytes # 1.5 10*3/uL (1.4-4.0); Lymphocytes % 27.8 % (21.2-54.2); Mean Corpuscular HGB Conc 32.6 GM/DL (32-36); Mean Corpuscular Volume 98.9 FL (87-102); Mean Platelet Volume 11.3 FL (9.6-12.0); Monocytes % 9.4 % (1.7-12.7); NRBC # 0.03 10*3/uL; Platelet Count 111 T/CUMM (130-400); Red Blood Count 2.85 MC/CUMM (3.8-5.5); White Blood Count 5.2 T/CUMM (4-12)
[2020-01-11 05:23] LABS: Calcium 8.8 MG/DL (8.5-10.1)
[2020-01-11] MEDS: SODIUM BICARB INJ 100 MEQ in DEXTROSE 5% 1,000 ML IV SCH (09:03)
[2020-01-11] MEDS ORDERED: propofoL 200 MG/20 ML VIAL IV ONE (09:30)
[2020-01-11] MEDS ORDERED: LIDOCAINE 2% 5 ML VIAL ONE (09:30)
[2020-01-11] MEDS: SODIUM CHLORIDE 0.9% 1,000 ML IV SCH (10:41)
[2020-01-11 10:56] LABS: Hematocrit 27.9 VOL% (42.0-52.0)
[2020-01-11] MEDS: carvediloL 3.125 MG TABLET PO SCH ×2 (13:35→21:08)
[2020-01-11] MEDS ORDERED: DOLUTEGRAVIR 50 MG PO SCH (14:45)
[2020-01-11] MEDS ORDERED: ABACAVIR PO SCH (21:00)
[2020-01-11] MEDS: PANTOPRAZOLE 40 MG VIAL IV SCH (21:07)
[2020-01-11] MEDS: levETIRAcetam 500 MG TABLET PO SCH (21:08)
[2020-01-11] MEDS: valACYclovir 500 MG TABLET PO SCH (21:08)
[2020-01-11] MEDS: BUDESONIDE/FORMOTEROL 160-4.5 INHALER 6 GM INH SCH (21:09)
[2020-01-12] MEDS: MORPHINE 4 MG/1 ML VIAL IV PRN ×2 (01:18→21:41)
[2020-01-12 06:35] LABS: Basophils % 0.7 % (0.0-0.8); Eosinophils % 0.5 % (0.00-10.9); Hemoglobin 9.4 GM/DL (14.0-18.0); Immature Granulocytes % 0.7 %; Immature Granulocytes Absolute 0.03 #; Lymphocytes # 0.8 10*3/uL (1.4-4.0); Mean Corpuscular HGB Conc 32.4 GM/DL (32-36); Mean Corpuscular Volume 99.3 FL (87-102); Mean Platelet Volume 11.9 FL (9.6-12.0); Monocytes % 8.2 % (1.7-12.7); NRBC # 0.02 10*3/uL; Neutrophils % 70.9 % (38.7-73.9); Platelet Count 116 T/CUMM (130-400); Red Blood Count 2.92 MC/CUMM (3.8-5.5); Red Cell Distribution Width 16.1 % (9.3-17.3); White Blood Count 4.4 T/CUMM (4-12)
[2020-01-12 06:51] LABS: Calcium 8.3 MG/DL (8.5-10.1)
[2020-01-12] MEDS: valACYclovir 500 MG TABLET PO SCH ×2 (09:04→21:23)
[2020-01-12] MEDS: carvediloL 3.125 MG TABLET PO SCH ×2 (09:04→21:23)
[2020-01-12] MEDS: BUDESONIDE/FORMOTEROL 160-4.5 INHALER 6 GM INH SCH ×2 (09:06→21:25)
[2020-01-12] MEDS: PANTOPRAZOLE 40 MG VIAL IV SCH ×2 (09:06→21:25)
[2020-01-12] MEDS: levETIRAcetam 500 MG TABLET PO SCH ×4 (09:23→21:23)
[2020-01-12] MEDS: SODIUM CHLORIDE 0.9% 1,000 ML IV SCH (10:58)
[2020-01-13 08:55] LABS: Basophils % 0.5 % (0.0-0.8); Eosinophils % 0.3 % (0.00-10.9); Hematocrit 34.6 VOL% (42.0-52.0); Hemoglobin 11.1 GM/DL (14.0-18.0); Immature Granulocytes % 0.3 %; Immature Granulocytes Absolute 0.02 #; Lymphocytes # 1.7 10*3/uL (1.4-4.0); Lymphocytes % 25.9 % (21.2-54.2); Mean Corpuscular HGB Conc 32.1 GM/DL (32-36); Mean Corpuscular Volume 99.7 FL (87-102); Mean Platelet Volume 10.9 FL (9.6-12.0); Monocytes % 10.4 % (1.7-12.7); NRBC # 0.03 10*3/uL; Neutrophils % 62.6 % (38.7-73.9); Platelet Count 120 T/CUMM (130-400); Red Blood Count 3.47 MC/CUMM (3.8-5.5); Red Cell Distribution Width 16.1 % (9.3-17.3); White Blood Count 6.5 T/CUMM (4-12)
[2020-01-13 09:11] LABS: Calcium 8.7 MG/DL (8.5-10.1); Osmolality,Calculated 276.4 MOS/KG (273-304)
[2020-01-13] MEDS: ACETAMINOPHEN 325 MG TABLET PO PRN (09:56)
[2020-01-13] MEDS: BUDESONIDE/FORMOTEROL 160-4.5 INHALER 6 GM INH SCH ×2 (16:30→21:45)
[2020-01-13] MEDS: carvediloL 3.125 MG TABLET PO SCH ×2 (16:30→21:44)
[2020-01-13] MEDS: levETIRAcetam 500 MG TABLET PO SCH ×2 (16:30→21:44)
[2020-01-13] MEDS: MORPHINE 4 MG/1 ML VIAL IV PRN ×2 (16:30→21:57)
[2020-01-13] MEDS: valACYclovir 500 MG TABLET PO SCH ×2 (16:30→21:44)
[2020-01-13] MEDS: PANTOPRAZOLE 40 MG VIAL IV SCH ×2 (16:30→21:46)
[2020-01-13] MEDS: SODIUM CHLORIDE 0.9% 1,000 ML IV SCH (16:52)
[2020-01-14] MEDS: ACETAMINOPHEN 325 MG TABLET PO PRN (05:12)
[2020-01-14] MEDS: MORPHINE 4 MG/1 ML VIAL IV PRN (05:13)
[2020-01-14] MEDS: carvediloL 3.125 MG TABLET PO SCH ×3 (09:13→20:33)
[2020-01-14] MEDS: valACYclovir 500 MG TABLET PO SCH ×3 (09:13→20:33)
[2020-01-14] MEDS: PANTOPRAZOLE 40 MG VIAL IV SCH ×2 (09:13→20:34)
[2020-01-14] MEDS: levETIRAcetam 500 MG TABLET PO SCH ×3 (09:13→20:34)
[2020-01-14] MEDS: BUDESONIDE/FORMOTEROL 160-4.5 INHALER 6 GM INH SCH ×2 (09:19→20:39)
[2020-01-14 15:25] LABS: ABG Base Excess 0.8 MMOL/L (-2.5-2.5); ABG HCO3 25.1 MMOL/L (20-26); ABG PH 7.506 (7.35-7.45); ABG PO2 78.4 MM HG (80-95); Allen Test Positive
[2020-01-14] MEDS ORDERED: AZITHROMYCIN INJ 500 MG in SODIUM CHLORIDE 0.9% 250 ML IV ONE (16:00)
[2020-01-14] MEDS ORDERED: cefTRIAXone 1,000 MG in SYRINGE 1 EACH IV ONE (16:00)
[2020-01-14] MEDS: ALBUTEROL/IPRATROPIUM 3 ML NEB RESP TX SCH (19:25)
[2020-01-15] MEDS: ALBUTEROL/IPRATROPIUM 3 ML NEB RESP TX SCH ×4 (01:09→21:25)
[2020-01-15 02:11] LABS: Basophils # 0.1 10*3/uL (0.0-0.2); Basophils % 0.3 % (0.0-0.8); Hematocrit 37.5 VOL% (42.0-52.0); Hemoglobin 12.2 GM/DL (14.0-18.0); Immature Granulocytes % 1.5 %; Lymphocytes # 1.8 10*3/uL (1.4-4.0); Lymphocytes % 6.8 % (21.2-54.2); Mean Corpuscular HGB Conc 32.5 GM/DL (32-36); Mean Corpuscular Volume 98.7 FL (87-102); Mean Platelet Volume 12.2 FL (9.6-12.0); Monocytes % 5.3 % (1.7-12.7); Neutrophils % 86.1 % (38.7-73.9); Red Cell Distribution Width 16.2 % (9.3-17.3)
[2020-01-15 02:12] LABS: Platelet Count 77 T/CUMM (130-400)
[2020-01-15 02:27] LABS: Calcium 8.5 MG/DL (8.5-10.1); Osmolality,Calculated 282.5 MOS/KG (273-304)
[2020-01-15 02:56] LABS: Band Neutrophils 14 % (0-10); Lymphocytes 6 % (20-55); Metamyelocytes 4 %; Segmented Neutrophils 72 % (50-85)
[2020-01-15 02:58] LABS: Hypochromasia Slight; Platelet Estimate Decreased; Total Cells Counted 100
[2020-01-15 02:59] LABS: Polychromasia Few
[2020-01-15] MEDS ORDERED: AZITHROMYCIN INJ 250 MG in SODIUM CHLORIDE 0.9% 250 ML IV SCH (09:30)
[2020-01-15] MEDS: valACYclovir 500 MG TABLET PO SCH ×2 (10:11→21:18)
[2020-01-15] MEDS: levETIRAcetam 500 MG TABLET PO SCH ×4 (10:12→21:13)
[2020-01-15] MEDS: carvediloL 3.125 MG TABLET PO SCH ×2 (10:13→21:13)
[2020-01-15] MEDS: PANTOPRAZOLE 40 MG VIAL IV SCH ×2 (10:13→21:14)
[2020-01-15] MEDS: BUDESONIDE/FORMOTEROL 160-4.5 INHALER 6 GM INH SCH ×2 (10:26→21:19)
[2020-01-15] MEDS: cefTRIAXone 1,000 MG in SYRINGE 1 EACH IV SCH (10:27)
[2020-01-15] MEDS: AZITHROMYCIN INJ 250 MG in SODIUM CHLORIDE 0.9% 150 ML IV SCH (12:39)
[2020-01-16] MEDS: ALBUTEROL/IPRATROPIUM 3 ML NEB RESP TX SCH ×4 (00:30→21:24)
[2020-01-16 03:05] LABS: Basophils # 0.1 10*3/uL (0.0-0.2); Basophils % 0.3 % (0.0-0.8); Eosinophils # 0.1 10*3/uL (0.0-0.87); Hematocrit 35.5 VOL% (42.0-52.0); Hemoglobin 11.4 GM/DL (14.0-18.0); Immature Granulocytes % 0.6 %; Immature Granulocytes Absolute 0.09 #; Lymphocytes # 1.5 10*3/uL (1.4-4.0); Lymphocytes % 10.4 % (21.2-54.2); Mean Corpuscular HGB Conc 32.1 GM/DL (32-36); Mean Platelet Volume 12.8 FL (9.6-12.0); Monocytes % 6.7 % (1.7-12.7); Red Blood Count 3.55 MC/CUMM (3.8-5.5); White Blood Count 14.5 T/CUMM (4-12)
[2020-01-16 03:06] LABS: Platelet Count 73 T/CUMM (130-400)
[2020-01-16 03:17] LABS: Calcium 8.5 MG/DL (8.5-10.1); Osmolality,Calculated 281.2 MOS/KG (273-304)
[2020-01-16 03:25] LABS: Platelet Estimate Decreased
[2020-01-16] MEDS: carvediloL 3.125 MG TABLET PO SCH ×2 (08:39→20:53)
[2020-01-16] MEDS: levETIRAcetam 500 MG TABLET PO SCH ×2 (08:39→20:53)
[2020-01-16] MEDS: valACYclovir 500 MG TABLET PO SCH ×2 (08:39→20:53)
[2020-01-16] MEDS: PANTOPRAZOLE 40 MG VIAL IV SCH (08:40)
[2020-01-16] MEDS: cefTRIAXone 1,000 MG in SYRINGE 1 EACH IV SCH (08:41)
[2020-01-16] MEDS: AZITHROMYCIN INJ 250 MG in SODIUM CHLORIDE 0.9% 150 ML IV SCH (08:47)
[2020-01-16] MEDS: PANTOPRAZOLE 40 MG TABLET PO SCH ×2 (08:53→20:53)
[2020-01-16] MEDS: BUDESONIDE/FORMOTEROL 160-4.5 INHALER 6 GM INH SCH ×2 (09:19→20:53)
[2020-01-16] MEDS: SODIUM CHLORIDE 0.9% 1,000 ML IV SCH ×2 (14:13→14:14)
[2020-01-16] MEDS ORDERED: TUBERCULIN SKIN TEST 0.1 ML SYRINGE INTRADERM ONE (14:37)
[2020-01-16] MEDS: ACETAMINOPHEN 325 MG TABLET PO PRN (23:41)
[2020-01-17] MEDS: ALBUTEROL/IPRATROPIUM 3 ML NEB RESP TX SCH ×4 (02:16→19:13)
[2020-01-17 05:17] LABS: Basophils % 0.4 % (0.0-0.8); Eosinophils # 0.3 10*3/uL (0.0-0.87); Eosinophils % 3.6 % (0.00-10.9); Hematocrit 33.5 VOL% (42.0-52.0); Hemoglobin 10.9 GM/DL (14.0-18.0); Immature Granulocytes % 0.7 %; Immature Granulocytes Absolute 0.05 #; Lymphocytes # 1.1 10*3/uL (1.4-4.0); Lymphocytes % 14.5 % (21.2-54.2); Mean Corpuscular HGB Conc 32.5 GM/DL (32-36); Mean Platelet Volume 13.5 FL (9.6-12.0); Monocytes % 10.2 % (1.7-12.7); Neutrophils % 70.6 % (38.7-73.9); Red Blood Count 3.42 MC/CUMM (3.8-5.5); Red Cell Distribution Width 15.6 % (9.3-17.3); White Blood Count 7.4 T/CUMM (4-12)
[2020-01-17 05:30] LABS: Platelet Count 69 T/CUMM (130-400)
[2020-01-17 05:33] LABS: Calcium 8.7 MG/DL (8.5-10.1); Osmolality,Calculated 276.2 MOS/KG (273-304)
[2020-01-17 05:58] LABS: Hypochromasia 1+; Platelet Estimate Decreased
[2020-01-17] MEDS: LEVOTHYROXINE 100 MCG TABLET PO SCH (05:58)
[2020-01-17] MEDS: levETIRAcetam 500 MG TABLET PO SCH ×4 (09:07→22:39)
[2020-01-17] MEDS: PANTOPRAZOLE 40 MG TABLET PO SCH ×2 (09:07→22:39)
[2020-01-17] MEDS: carvediloL 3.125 MG TABLET PO SCH ×2 (09:07→22:40)
[2020-01-17] MEDS: valACYclovir 500 MG TABLET PO SCH ×3 (09:07→22:38)
[2020-01-17] MEDS: cefTRIAXone 1,000 MG in SYRINGE 1 EACH IV SCH ×2 (09:07→09:13)
[2020-01-17] MEDS: BUDESONIDE/FORMOTEROL 160-4.5 INHALER 6 GM INH SCH ×2 (09:08→22:40)
[2020-01-17] MEDS: AZITHROMYCIN INJ 250 MG in SODIUM CHLORIDE 0.9% 150 ML IV SCH (10:36)
[2020-01-17] MEDS: SODIUM CHLORIDE 0.9% 1,000 ML IV SCH (10:38)
[2020-01-17] MEDS: DOXYCYCLINE HYCLATE 100 MG CAPSULE PO SCH (22:39)
[2020-01-18] MEDS: ALBUTEROL/IPRATROPIUM 3 ML NEB RESP TX SCH ×4 (01:25→19:51)
[2020-01-18] MEDS: LEVOTHYROXINE 100 MCG TABLET PO SCH (06:02)
[2020-01-18] MEDS: SODIUM CHLORIDE 0.9% 1,000 ML IV SCH (12:30)
[2020-01-18] MEDS: BUDESONIDE/FORMOTEROL 160-4.5 INHALER 6 GM INH SCH ×2 (12:39→23:05)
[2020-01-18] MEDS: DOXYCYCLINE HYCLATE 100 MG CAPSULE PO SCH ×2 (12:39→23:04)
[2020-01-18] MEDS: valACYclovir 500 MG TABLET PO SCH ×2 (12:39→23:04)
[2020-01-18] MEDS: PANTOPRAZOLE 40 MG TABLET PO SCH ×2 (12:39→23:05)
[2020-01-18] MEDS: carvediloL 3.125 MG TABLET PO SCH ×2 (12:39→23:04)
[2020-01-18] MEDS: levETIRAcetam 500 MG TABLET PO SCH ×2 (12:39→23:04)
[2020-01-19] MEDS: ALBUTEROL/IPRATROPIUM 3 ML NEB RESP TX SCH ×4 (00:26→20:13)
[2020-01-19] MEDS: LEVOTHYROXINE 100 MCG TABLET PO SCH (06:22)
[2020-01-19] MEDS: PANTOPRAZOLE 40 MG TABLET PO SCH ×2 (09:16→20:30)
[2020-01-19] MEDS: levETIRAcetam 500 MG TABLET PO SCH ×3 (09:16→20:30)
[2020-01-19] MEDS: carvediloL 3.125 MG TABLET PO SCH ×2 (09:17→20:31)
[2020-01-19] MEDS: valACYclovir 500 MG TABLET PO SCH ×2 (09:17→20:30)
[2020-01-19] MEDS: DOXYCYCLINE HYCLATE 100 MG CAPSULE PO SCH ×3 (09:17→23:09)
[2020-01-19] MEDS: BUDESONIDE/FORMOTEROL 160-4.5 INHALER 6 GM INH SCH ×2 (09:20→20:31)
[2020-01-19] MEDS: SODIUM CHLORIDE 0.9% 1,000 ML IV SCH (09:21)
[2020-01-19 09:47] LABS: Basophils % 0.6 % (0.0-0.8); Eosinophils # 0.3 10*3/uL (0.0-0.87); Eosinophils % 5.5 % (0.00-10.9); Hematocrit 40.9 VOL% (42.0-52.0); Hemoglobin 13.1 GM/DL (14.0-18.0); Immature Granulocytes % 4.3 %; Immature Granulocytes Absolute 0.21 #; Lymphocytes # 1.3 10*3/uL (1.4-4.0); Lymphocytes % 26.1 % (21.2-54.2); Mean Corpuscular Volume 98.3 FL (87-102); Mean Platelet Volume 12.1 FL (9.6-12.0); Monocytes % 13.1 % (1.7-12.7); Neutrophils % 50.4 % (38.7-73.9); Platelet Count 111 T/CUMM (130-400); Red Blood Count 4.16 MC/CUMM (3.8-5.5); Red Cell Distribution Width 15.7 % (9.3-17.3); White Blood Count 4.9 T/CUMM (4-12)
[2020-01-19 10:07] LABS: Band Neutrophils 1 % (0-10); Eosinophils 5 % (0-10); Lymphocytes 23 % (20-55); Platelet Estimate Decreased; Segmented Neutrophils 65 % (50-85); Total Cells Counted 100
[2020-01-19 10:08] LABS: Hypochromasia 1+
[2020-01-19] MEDS ORDERED: ONDANSETRON ODT 4 MG TABLET PO PRN (13:21)
[2020-01-19] MEDS ORDERED: ALUM/MAG/SIMETH/LIDO VISC 1:1 30 ML BOTTLE PO ONE (18:07)
[2020-01-20] MEDS: ALBUTEROL/IPRATROPIUM 3 ML NEB RESP TX SCH ×4 (01:07→21:05)
[2020-01-20] MEDS: LEVOTHYROXINE 100 MCG TABLET PO SCH (05:42)
[2020-01-20] MEDS: DOXYCYCLINE HYCLATE 100 MG CAPSULE PO SCH ×2 (09:21→23:21)
[2020-01-20] MEDS: BUDESONIDE/FORMOTEROL 160-4.5 INHALER 6 GM INH SCH ×2 (09:21→21:23)
[2020-01-20] MEDS: carvediloL 3.125 MG TABLET PO SCH ×2 (09:21→21:19)
[2020-01-20] MEDS: PANTOPRAZOLE 40 MG TABLET PO SCH ×2 (09:21→21:19)
[2020-01-20] MEDS: valACYclovir 500 MG TABLET PO SCH ×2 (09:21→23:20)
[2020-01-20] MEDS: levETIRAcetam 500 MG TABLET PO SCH ×2 (09:21→21:18)
[2020-01-20] MEDS: SODIUM CHLORIDE 0.9% 1,000 ML IV SCH (16:15)
[2020-01-21] MEDS: ALBUTEROL/IPRATROPIUM 3 ML NEB RESP TX SCH ×4 (01:44→19:20)
[2020-01-21] MEDS: LEVOTHYROXINE 100 MCG TABLET PO SCH (05:47)
[2020-01-21] MEDS: ACETAMINOPHEN 325 MG TABLET PO PRN (08:55)
[2020-01-21] MEDS: valACYclovir 500 MG TABLET PO SCH ×2 (08:56→21:06)
[2020-01-21] MEDS: DOXYCYCLINE HYCLATE 100 MG CAPSULE PO SCH ×2 (08:56→21:06)
[2020-01-21] MEDS: levETIRAcetam 500 MG TABLET PO SCH ×2 (08:56→21:06)
[2020-01-21] MEDS: PANTOPRAZOLE 40 MG TABLET PO SCH ×2 (08:56→21:06)
[2020-01-21] MEDS: carvediloL 3.125 MG TABLET PO SCH ×2 (08:57→21:07)
[2020-01-21] MEDS: BUDESONIDE/FORMOTEROL 160-4.5 INHALER 6 GM INH SCH ×2 (09:19→21:07)
[2020-01-21] MEDS: SODIUM CHLORIDE 0.9% 1,000 ML IV SCH (15:34)
[2020-01-21] MEDS: ZALEPLON 5 MG CAPSULE PO PRN ×2 (21:06→21:47)
[2020-01-22] MEDS: ALBUTEROL/IPRATROPIUM 3 ML NEB RESP TX SCH ×4 (00:30→19:42)
[2020-01-22 05:34] LABS: Basophils # 0.1 10*3/uL (0.0-0.2); Basophils % 0.9 % (0.0-0.8); Eosinophils # 0.2 10*3/uL (0.0-0.87); Eosinophils % 3.1 % (0.00-10.9); Hematocrit 33.7 VOL% (42.0-52.0); Hemoglobin 10.8 GM/DL (14.0-18.0); Immature Granulocytes % 3.3 %; Immature Granulocytes Absolute 0.19 #; Lymphocytes # 2.6 10*3/uL (1.4-4.0); Lymphocytes % 45.5 % (21.2-54.2); Mean Corpuscular Volume 99.4 FL (87-102); Mean Platelet Volume 11.8 FL (9.6-12.0); Monocytes % 13.4 % (1.7-12.7); Neutrophils % 33.8 % (38.7-73.9); Platelet Count 156 T/CUMM (130-400); Red Blood Count 3.39 MC/CUMM (3.8-5.5); Red Cell Distribution Width 15.9 % (9.3-17.3); White Blood Count 5.7 T/CUMM (4-12)
[2020-01-22] MEDS: LEVOTHYROXINE 100 MCG TABLET PO SCH (05:35)
[2020-01-22 06:13] LABS: Eosinophils 7 % (0-10); Hypochromasia 1+; Lymphocytes 43 % (20-55); Ovalocytes Slight; Platelet Estimate Adequate; Segmented Neutrophils 40 % (50-85); Total Cells Counted 100
[2020-01-22 06:19] LABS: Calcium 8.3 MG/DL (8.5-10.1)
[2020-01-22 06:21] LABS: Osmolality,Calculated 295.8 MOS/KG (273-304)
[2020-01-22] MEDS: carvediloL 3.125 MG TABLET PO SCH ×2 (13:10→20:45)
[2020-01-22] MEDS: SODIUM CHLORIDE 0.9% 1,000 ML IV SCH (13:10)
[2020-01-22] MEDS: BUDESONIDE/FORMOTEROL 160-4.5 INHALER 6 GM INH SCH ×2 (15:27→20:55)
[2020-01-22] MEDS: levETIRAcetam 500 MG TABLET PO SCH ×3 (15:27→20:54)
[2020-01-22] MEDS: PANTOPRAZOLE 40 MG TABLET PO SCH ×2 (15:27→20:54)
[2020-01-22] MEDS: DOXYCYCLINE HYCLATE 100 MG CAPSULE PO SCH ×2 (15:28→20:55)
[2020-01-22] MEDS: valACYclovir 500 MG TABLET PO SCH ×2 (15:28→20:55)
[2020-01-22] MEDS: ZALEPLON 5 MG CAPSULE PO PRN (20:55)
[2020-01-23] MEDS: ALBUTEROL/IPRATROPIUM 3 ML NEB RESP TX SCH ×3 (02:29→19:22)
[2020-01-23] MEDS: LEVOTHYROXINE 100 MCG TABLET PO SCH (05:54)
[2020-01-23] MEDS: PANTOPRAZOLE 40 MG TABLET PO SCH ×2 (08:30→20:54)
[2020-01-23] MEDS: levETIRAcetam 500 MG TABLET PO SCH ×2 (08:31→20:54)
[2020-01-23] MEDS: BUDESONIDE/FORMOTEROL 160-4.5 INHALER 6 GM INH SCH ×2 (08:34→20:55)
[2020-01-23] MEDS: carvediloL 3.125 MG TABLET PO SCH ×2 (08:34→21:04)
[2020-01-23] MEDS: valACYclovir 500 MG TABLET PO SCH ×2 (08:34→20:55)
[2020-01-23] MEDS: SODIUM CHLORIDE 0.9% 1,000 ML IV SCH (12:07)
[2020-01-23] MEDS ORDERED: ZALEPLON 5 MG CAPSULE PO PRN (18:47)
[2020-01-24] MEDS: ALBUTEROL/IPRATROPIUM 3 ML NEB RESP TX SCH ×3 (00:14→15:16)
[2020-01-24 04:17] LABS: Basophils % 0.8 % (0.0-0.8); Eosinophils # 0.1 10*3/uL (0.0-0.87); Hematocrit 32.9 VOL% (42.0-52.0); Hemoglobin 10.3 GM/DL (14.0-18.0); Immature Granulocytes % 0.8 %; Immature Granulocytes Absolute 0.04 #; Lymphocytes # 1.9 10*3/uL (1.4-4.0); Lymphocytes % 39.8 % (21.2-54.2); Mean Corpuscular HGB Conc 31.3 GM/DL (32-36); Mean Corpuscular Volume 100.6 FL (87-102); Mean Platelet Volume 12.2 FL (9.6-12.0); Monocytes % 11.3 % (1.7-12.7); Neutrophils % 46.3 % (38.7-73.9); Platelet Count 140 T/CUMM (130-400); Red Blood Count 3.27 MC/CUMM (3.8-5.5); Red Cell Distribution Width 15.9 % (9.3-17.3); White Blood Count 4.9 T/CUMM (4-12)
[2020-01-24 04:48] LABS: Calcium 8.4 MG/DL (8.5-10.1)
[2020-01-24] MEDS: LEVOTHYROXINE 100 MCG TABLET PO SCH (05:50)
[2020-01-24] MEDS: levETIRAcetam 500 MG TABLET PO SCH ×2 (08:49→08:50)
[2020-01-24] MEDS: carvediloL 3.125 MG TABLET PO SCH (08:49)
[2020-01-24] MEDS: PANTOPRAZOLE 40 MG TABLET PO SCH (08:49)
[2020-01-24] MEDS: BUDESONIDE/FORMOTEROL 160-4.5 INHALER 6 GM INH SCH (08:49)
[2020-01-24] MEDS: valACYclovir 500 MG TABLET PO SCH (08:49)
[2020-01-24 16:16] VITALS: BP 120/70
== END 2020-01-24 16:15 | disposition home or self-care (01) | DRG 377 ==
LOC: EDBD → EDUNIT# → N.ED 19:02 → N.EDINP 22:40 → SUATTDRO 22:40 → N.TELES 23:53 → N.TELEN 01-11 00:20
PROVIDERS: ADMIT Internal Medicine; ATTEND Internal Medicine

== ENCOUNTER 2021-06-15 20:07 | Inpatient (IN) ==
[2021-06-15 23:42] LABS: Basophils # 0.1 10*3/uL (0.0-0.2); Basophils % 0.7 % (0.0-0.8); Hemoglobin 7.7 GM/DL (14.0-18.0); Immature Granulocytes % 0.4 %; Immature Granulocytes Absolute 0.03 #; Lymphocytes # 1.3 10*3/uL (1.4-4.0); Lymphocytes % 18.6 % (21.2-54.2); Mean Corpuscular HGB Conc 29.6 GM/DL (32-36); Mean Platelet Volume 11.9 FL (9.6-12.0); Monocytes % 10.4 % (1.7-12.7); NRBC # 0.06 10*3/uL; Neutrophils % 69.9 % (38.7-73.9); Platelet Count 117 T/CUMM (130-400); Red Cell Distribution Width 29.1 % (9.3-17.3); White Blood Count 6.9 T/CUMM (4-12)
[2021-06-16 00:03] LABS: Albumin 2.5 G/DL (3.4-5.0); Calcium 8.6 MG/DL (8.5-10.1); Osmolality,Calculated 279.8 MOS/KG (273-304); Total Protein 9.7 G/DL (6.4-8.2)
[2021-06-16 00:09] LABS: Potassium 2.4 MMOL/L (3.5-5.1)
[2021-06-16] MEDS ORDERED: POTASSIUM CHLORIDE 20 MEQ TABLET PO STA (01:07)
[2021-06-16] MEDS ORDERED: ONDANSETRON 4 MG/2 ML VIAL IV ONE (01:51)
[2021-06-16] MEDS ORDERED: methylPREDNISolone SOD SUC 125 MG/2 ML VIAL IV STA (01:51)
[2021-06-16] MEDS ORDERED: MORPHINE 2 MG/1 ML SYRINGE IV STA ×2 (01:51→05:07)
[2021-06-16] MEDS ORDERED: ALBUTEROL/IPRATROPIUM 3 ML NEB RESP TX STA (02:47)
[2021-06-16] MEDS ORDERED: DOCUSATE SODIUM 100 MG CAPSULE PO PRN (06:27)
[2021-06-16] MEDS ORDERED: hydrALAZINE 20 MG/1 ML VIAL IV PRN (06:27)
[2021-06-16] MEDS ORDERED: ALBUTEROL 2.5 MG/3 ML NEB RESP TX PRN (06:27)
[2021-06-16] MEDS ORDERED: ACETAMINOPHEN 325 MG TABLET PO PRN (06:27)
[2021-06-16] MEDS ORDERED: GLUCAGON 1 MG VIAL IM PRN (06:27)
[2021-06-16] MEDS ORDERED: SEVELAMER CARBONATE 800 MG TABLET PO SCH (08:00)
[2021-06-16] MEDS: ALBUTEROL/IPRATROPIUM 3 ML NEB RESP TX SCH ×4 (08:05→20:31)
[2021-06-16] MEDS ORDERED: PANTOPRAZOLE 40 MG VIAL IV SCH (09:00)
[2021-06-16 09:17] LABS: Basophils % 0.2 % (0.0-0.8); Hematocrit 26.2 VOL% (42.0-52.0); Hemoglobin 7.6 GM/DL (14.0-18.0); Immature Granulocytes % 0.3 %; Immature Granulocytes Absolute 0.02 #; Lymphocytes # 0.6 10*3/uL (1.4-4.0); Lymphocytes % 9.5 % (21.2-54.2); Mean Corpuscular Volume 113.4 FL (87-102); Mean Platelet Volume 12.3 FL (9.6-12.0); Monocytes % 2.9 % (1.7-12.7); NRBC # 0.04 10*3/uL; Neutrophils % 87.1 % (38.7-73.9); Platelet Count 111 T/CUMM (130-400); Red Blood Count 2.31 MC/CUMM (3.8-5.5); White Blood Count 5.8 T/CUMM (4-12)
[2021-06-16 09:35] LABS: Calcium 8.3 MG/DL (8.5-10.1); Osmolality,Calculated 282.2 MOS/KG (273-304); Potassium 3.7 MMOL/L (3.5-5.1)
[2021-06-16] MEDS: MORPHINE 2 MG/1 ML SYRINGE IV PRN ×2 (09:42→16:35)
[2021-06-16] MEDS: carvediloL 25 MG TABLET PO SCH ×3 (09:43→21:08)
[2021-06-16 09:52] LABS: Anisocytosis 1+; Hypochromasia 1+; Lymphocytes 5 % (20-55); Polychromasia Slight; Segmented Neutrophils 92 % (50-85); Total Cells Counted 100
[2021-06-16 09:53] LABS: Platelet Estimate Decreased
[2021-06-16] MEDS ORDERED: CIPROFLOXACIN 500 MG TABLET PO SCH (11:00)
[2021-06-16] MEDS ORDERED: BISACODYL 5 MG TABLET PO ONE ×2 (12:00→18:10)
[2021-06-16] MEDS ORDERED: EPOETIN ALFA-EPBX 10,000 UNIT/ML VIAL IV PRN (14:11)
[2021-06-16 15:46] LABS: INR 1.2; PT Patient Result 13.2 SECS (10.5-12.0)
[2021-06-16] MEDS ORDERED: cefTAZidime 500 MG in SODIUM CHLORIDE 0.9% 100 ML IV SCH (16:00)
[2021-06-16] MEDS ORDERED: POLYETHYLENE GLYCOL POWDER 255 GM BOTTLE PO ONE (18:00)
[2021-06-16] MEDS: CALCIUM ACETATE 667 MG CAPSULE PO SCH (18:15)
[2021-06-16] MEDS: risperiDONE 1 MG TABLET PO SCH (21:08)
[2021-06-16] MEDS: AMITRIPTYLINE 50 MG TABLET PO SCH (21:08)
[2021-06-17 05:49] LABS: INR 1.5; PT Patient Result 16.1 SECS (10.5-12.0)
[2021-06-17] MEDS ORDERED: SODIUM PHOSPHATE ENEMA 133 ML BOTTLE RECTAL ONE (06:00)
[2021-06-17 06:16] LABS: Basophils # 0.1 10*3/uL (0.0-0.2); Basophils % 0.3 % (0.0-0.8); Eosinophils % 0.1 % (0.00-10.9); Hematocrit 32.5 VOL% (42.0-52.0); Hemoglobin 8.2 GM/DL (14.0-18.0); Immature Granulocytes % 4.1 %; Immature Granulocytes Absolute 0.82 #; Lymphocytes # 1.3 10*3/uL (1.4-4.0); Lymphocytes % 6.4 % (21.2-54.2); Mean Corpuscular HGB Conc 25.2 GM/DL (32-36); Mean Corpuscular Volume 132.7 FL (87-102); Mean Platelet Volume 13.4 FL (9.6-12.0); Monocytes % 13.1 % (1.7-12.7); Platelet Count 93 T/CUMM (130-400); Red Blood Count 2.45 MC/CUMM (3.8-5.5)
[2021-06-17 06:20] LABS: Anisocytosis 3+; Band Neutrophils 17 % (0-10); Lymphocytes 10 % (20-55); Macrocytosis 3+; Metamyelocytes 1 %; Nucleated Red Blood Cells 4 (0-5); Platelet Estimate Decreased; Segmented Neutrophils 56 % (50-85); Total Cells Counted 100
[2021-06-17 06:21] LABS: Polychromasia Slight
[2021-06-17 06:22] LABS: Burr Cells 1+
[2021-06-17] MEDS: ALBUTEROL/IPRATROPIUM 3 ML NEB RESP TX SCH ×4 (07:28→19:30)
[2021-06-17] MEDS: CALCIUM ACETATE 667 MG CAPSULE PO SCH ×3 (08:30→17:29)
[2021-06-17] MEDS: carvediloL 25 MG TABLET PO SCH ×2 (08:30→20:51)
[2021-06-17] MEDS: SODIUM CHLORIDE 0.9% 1,000 ML IV SCH (09:07)
[2021-06-17 09:10] LABS: Alanine Aminotransferase 55 U/L (16-61); Albumin 2.7 G/DL (3.4-5.0); Alkaline Phosphatase 371 U/L (45-117); Aspartate Amino Transferase 120 U/L (0-37); Bilirubin,Total 2.09 MG/DL (0.20-1.00); Blood Urea Nitrogen 62 MG/DL (7-18); Calcium 8.9 MG/DL (8.5-10.1); Total Protein 10.4 G/DL (6.4-8.2)
[2021-06-17 09:11] LABS: Estimated Glom Filtration Rate 8 ML/MIN; Potassium 5.1 MMOL/L (3.5-5.1); Sodium 137 MMOL/L (136-145)
[2021-06-17 09:12] LABS: Carbon Dioxide 1 MMOL/L (21-32)
[2021-06-17 09:14] LABS: Glucose < 4 MG/DL (74-106)
[2021-06-17] MEDS ORDERED: VANCOMYCIN INJ 500 MG in SODIUM CHLORIDE 0.9% 100 ML IV PRN (09:26)
[2021-06-17] MEDS: DEXTROSE 50% 25 GM/50 ML VIAL IV PRN ×2 (09:26→09:45)
[2021-06-17] MEDS: DEXTROSE 10% 500 ML IV SCH ×2 (09:29→20:30)
[2021-06-17] MEDS ORDERED: DEXTROSE 50% 25 GM/50 ML VIAL IV PRN (09:43)
[2021-06-17] MEDS ORDERED: GLUCAGON 1 MG VIAL IM PRN (09:43)
[2021-06-17] MEDS: SODIUM BICARB INJ 150 MEQ in DEXTROSE 5% 1,000 ML IV SCH ×2 (09:46→20:05)
[2021-06-17] MEDS ORDERED: SODIUM CHLORIDE 0.9% 1,000 ML IV SCH ×2 (10:00)
[2021-06-17 10:11] LABS: ABG Base Excess -25.2 MMOL/L (-2.5-2.5); ABG HCO3 3.2 MMOL/L (20-26); ABG Oxygen Saturation 98.4 % (95-100); ABG PO2 168.2 MM HG (80-95); ABG TCO2 3.6 MMOL/L (23-27); Allen Test Positive; Pt O2 Delivery Device Venturi Mask
[2021-06-17 10:14] LABS: ABG PCO2 12.3 MM HG (35-48); ABG PH 7.039 (7.35-7.45)
[2021-06-17] MEDS ORDERED: HYDROCORTISONE 100 MG VIAL IV ONE (10:39)
[2021-06-17] MEDS ORDERED: VANCOMYCIN INJ 500 MG in SODIUM CHLORIDE 0.9% 100 ML IV ONE (11:00)
[2021-06-17] MEDS: MULTIVITAMIN (BEROCCA) TABLET PO SCH ×2 (11:27→11:45)
[2021-06-17 11:34] LABS: Alanine Aminotransferase 73 U/L (16-61); Albumin 2.3 G/DL (3.4-5.0); Alkaline Phosphatase 318 U/L (45-117); Aspartate Amino Transferase 154 U/L (0-37); Blood Urea Nitrogen 66 MG/DL (7-18); Carbon Dioxide 6 MMOL/L (21-32); Estimated Glom Filtration Rate 8 ML/MIN; Glucose 312 MG/DL (74-106); Osmolality,Calculated 300.1 MOS/KG (273-304); Potassium 4.6 MMOL/L (3.5-5.1); Sodium 135 MMOL/L (136-145); Total Protein 8.4 G/DL (6.4-8.2)
[2021-06-17 11:35] LABS: INR 1.7; PT Patient Result 18.6 SECS (10.5-12.0)
[2021-06-17 11:43] LABS: Basophils % 0.1 % (0.0-0.8); Immature Granulocytes % 3.3 %; Immature Granulocytes Absolute 0.82 #; Lymphocytes # 1.5 10*3/uL (1.4-4.0); Mean Corpuscular Volume 132.3 FL (87-102); Mean Platelet Volume 13.7 FL (9.6-12.0); Monocytes % 6.1 % (1.7-12.7); NRBC # 0.66 10*3/uL; Neutrophils % 84.5 % (38.7-73.9); White Blood Count 25.1 T/CUMM (4-12)
[2021-06-17] MEDS: risperiDONE 1 MG TABLET PO SCH ×2 (11:45→20:51)
[2021-06-17 11:46] LABS: Hemoglobin 6.5 GM/DL (14.0-18.0); Platelet Count 55 T/CUMM (130-400); Red Blood Count 1.89 MC/CUMM (3.8-5.5)
[2021-06-17] MEDS ORDERED: SODIUM CHLORIDE 0.9% 1,000 ML IV PRN (11:54)
[2021-06-17 12:03] LABS: Anisocytosis 3+; Band Neutrophils 9 % (0-10); Burr Cells Few; Lymphocytes 7 % (20-55); Macrocytosis 2+; Metamyelocytes 1 %; Myelocytes 1 %; Nucleated Red Blood Cells 1 (0-5); Platelet Estimate Decreased; Polychromasia Slight; Segmented Neutrophils 73 % (50-85); Total Cells Counted 100
[2021-06-17 12:04] LABS: Acanthocytes Few; Poikilocytosis Slight
[2021-06-17] MEDS: MORPHINE 2 MG/1 ML SYRINGE IV PRN (13:38)
[2021-06-17] MEDS: ONDANSETRON 4 MG/2 ML VIAL IV PRN (14:27)
[2021-06-17 14:28] LABS: Calcium 7.9 MG/DL (8.5-10.1); Osmolality,Calculated 299.1 MOS/KG (273-304); Potassium 4.7 MMOL/L (3.5-5.1)
[2021-06-17 15:37] LABS: Hepatitis B Core IgM Quant 0.14 Index; Hepatitis B Surface Ag Quant < 0.10 Index; Hepatitis B Surface Ag Result Non-Reactive (NonReactive); Hepatitis C Virus Ab Quant 0.19 Index; Hepatitis C Virus Ab Result Non-Reactive (NonReactive)
[2021-06-17 17:50] LABS: Calcium 8.8 MG/DL (8.5-10.1); Osmolality,Calculated 266.9 MOS/KG (273-304); Potassium 3.4 MMOL/L (3.5-5.1)
[2021-06-17] MEDS ORDERED: SODIUM BICARBONATE 50 MEQ/50 ML VIAL IV ONE (18:04)
[2021-06-17] MEDS: HYDROCORTISONE 100 MG VIAL IV SCH (18:20)
[2021-06-17] MEDS: cefTAZidime 500 MG in SODIUM CHLORIDE 0.9% 100 ML IV SCH (18:24)
[2021-06-17 18:39] LABS: Hematocrit 31.6 VOL% (42.0-52.0); Hemoglobin 9.3 GM/DL (14.0-18.0)
[2021-06-17] MEDS: AMITRIPTYLINE 50 MG TABLET PO SCH (20:51)
[2021-06-18] MEDS: ALBUTEROL/IPRATROPIUM 3 ML NEB RESP TX SCH ×4 (00:44→18:14)
[2021-06-18] MEDS: HYDROCORTISONE 100 MG VIAL IV SCH ×3 (03:45→19:06)
[2021-06-18 03:55] LABS: Basophils % 0.1 % (0.0-0.8); Hematocrit 27.3 VOL% (42.0-52.0); Hemoglobin 8.2 GM/DL (14.0-18.0); Immature Granulocytes Absolute 0.32 #; Lymphocytes # 0.5 10*3/uL (1.4-4.0); Lymphocytes % 3.2 % (21.2-54.2); Mean Corpuscular Volume 106.2 FL (87-102); Monocytes % 5.4 % (1.7-12.7); NRBC # 0.65 10*3/uL; Neutrophils % 89.3 % (38.7-73.9); Platelet Count 66 T/CUMM (130-400); Red Blood Count 2.57 MC/CUMM (3.8-5.5); Red Cell Distribution Width 29.1 % (9.3-17.3); White Blood Count 16.2 T/CUMM (4-12)
[2021-06-18 04:03] LABS: INR 1.9; PT Patient Result 20.1 SECS (10.5-12.0)
[2021-06-18 04:18] LABS: Band Neutrophils 2 % (0-10); Hypochromasia Slight; Lymphocytes 3 % (20-55); Nucleated Red Blood Cells 2 (0-5); Platelet Estimate Decreased; Segmented Neutrophils 92 % (50-85); Total Cells Counted 100
[2021-06-18 04:19] LABS: ABG Base Excess 1.6 MMOL/L (-2.5-2.5); ABG HCO3 25.9 MMOL/L (20-26); ABG PCO2 35.1 MM HG (35-48); ABG PH 7.464 (7.35-7.45); ABG TCO2 23.4 MMOL/L (23-27); Allen Test Positive; Pt O2 Delivery Device Venturi Mask
[2021-06-18 04:23] LABS: Albumin 2.2 G/DL (3.4-5.0); Bilirubin,Total 2.2 MG/DL (0.20-1.00); Calcium 7.6 MG/DL (8.5-10.1); Osmolality,Calculated 285.1 MOS/KG (273-304); Potassium 4.4 MMOL/L (3.5-5.1); Total Protein 8.3 G/DL (6.4-8.2)
[2021-06-18] MEDS: DEXTROSE 10% 500 ML IV SCH (06:41)
[2021-06-18] MEDS: risperiDONE 1 MG TABLET PO SCH ×2 (09:40→20:35)
[2021-06-18] MEDS: carvediloL 25 MG TABLET PO SCH ×2 (09:41→20:00)
[2021-06-18] MEDS: MULTIVITAMIN (BEROCCA) TABLET PO SCH (09:41)
[2021-06-18 10:05] LABS: Hematocrit 27.1 VOL% (42.0-52.0); Hemoglobin 8.3 GM/DL (14.0-18.0)
[2021-06-18 10:20] LABS: Calcium 7.5 MG/DL (8.5-10.1); Osmolality,Calculated 289.1 MOS/KG (273-304); Potassium 4.7 MMOL/L (3.5-5.1)
[2021-06-18] MEDS ORDERED: PHYTONADIONE 10 MG/1 ML AMP SUBCUT ONE (11:58)
[2021-06-18] MEDS: cefTAZidime 500 MG in SODIUM CHLORIDE 0.9% 100 ML IV SCH (16:00)
[2021-06-18] MEDS ORDERED: ALBUMIN 25% 12.5 GM/50 ML VIAL IV SCH (18:00)
[2021-06-18] MEDS: CALCIUM ACETATE 667 MG CAPSULE PO SCH ×3 (19:02→19:03)
[2021-06-18] MEDS: SODIUM CHLORIDE 0.9% 1,000 ML IV SCH (19:02)
[2021-06-18] MEDS: PHENYLEPHRINE DRIP 40 MG/250 ML PREMIX IV PRN (19:10)
[2021-06-18] MEDS: ALBUMIN 25% 12.5 GM/50 ML VIAL IV SCH (20:34)
[2021-06-18] MEDS: AMITRIPTYLINE 50 MG TABLET PO SCH (20:35)
[2021-06-19] MEDS: ALBUTEROL/IPRATROPIUM 3 ML NEB RESP TX SCH ×4 (01:31→18:14)
[2021-06-19] MEDS: PHENYLEPHRINE DRIP 40 MG/250 ML PREMIX IV PRN ×4 (02:05→12:35)
[2021-06-19 02:33] LABS: Hematocrit 30.3 VOL% (42.0-52.0); Hemoglobin 8.8 GM/DL (14.0-18.0); Immature Granulocytes % 0.5 %; Immature Granulocytes Absolute 0.05 #; Lymphocytes # 0.9 10*3/uL (1.4-4.0); Lymphocytes % 9.3 % (21.2-54.2); Mean Corpuscular Volume 108.6 FL (87-102); Monocytes % 5.9 % (1.7-12.7); NRBC # 0.97 10*3/uL; Neutrophils % 84.3 % (38.7-73.9); Red Blood Count 2.79 MC/CUMM (3.8-5.5); Red Cell Distribution Width 28.5 % (9.3-17.3)
[2021-06-19 02:36] LABS: Platelet Count 73 T/CUMM (130-400); White Blood Count 9.6 T/CUMM (4-12)
[2021-06-19 03:10] LABS: Calcium 7.6 MG/DL (8.5-10.1); Osmolality,Calculated 283.8 MOS/KG (273-304); Potassium 5.3 MMOL/L (3.5-5.1); Total Protein 7.9 G/DL (6.4-8.2)
[2021-06-19 03:41] LABS: Hypochromasia 2+; Platelet Estimate Decreased
[2021-06-19 03:42] LABS: Microcytosis 3+
[2021-06-19 04:29] LABS: INR 1.8; PT Patient Result 19.3 SECS (10.5-12.0)
[2021-06-19] MEDS: HYDROCORTISONE 100 MG VIAL IV SCH ×2 (04:50→17:05)
[2021-06-19] MEDS: ALBUMIN 25% 12.5 GM/50 ML VIAL IV SCH ×2 (04:50→12:30)
[2021-06-19] MEDS: MULTIVITAMIN (BEROCCA) TABLET PO SCH (08:34)
[2021-06-19] MEDS: risperiDONE 1 MG TABLET PO SCH ×2 (08:34→21:10)
[2021-06-19] MEDS: CALCIUM ACETATE 667 MG CAPSULE PO SCH ×3 (08:35→17:10)
[2021-06-19] MEDS: carvediloL 25 MG TABLET PO SCH ×2 (08:35→20:00)
[2021-06-19] MEDS ORDERED: ALBUMIN 25% 12.5 GM/50 ML VIAL IV PRN (09:54)
[2021-06-19] MEDS ORDERED: NOREPINEPHRINE 8 MG in SODIUM CHLORIDE 0.9% 242 ML IV PRN (10:17)
[2021-06-19] MEDS ORDERED: NOREPINEPHRINE 4 MG/4 ML VIAL IV ONE (10:21)
[2021-06-19] MEDS ORDERED: VANCOMYCIN INJ 500 MG in SODIUM CHLORIDE 0.9% 100 ML IV ONE (15:00)
[2021-06-19] MEDS: PHENYLEPHRINE INJ 160 MG in SODIUM CHLORIDE 0.9% 234 ML IV PRN ×2 (15:00→22:22)
[2021-06-19] MEDS: cefTAZidime 500 MG in SODIUM CHLORIDE 0.9% 100 ML IV SCH (17:04)
[2021-06-19] MEDS: AMITRIPTYLINE 50 MG TABLET PO SCH (21:10)
[2021-06-20] MEDS: ALBUTEROL/IPRATROPIUM 3 ML NEB RESP TX SCH ×4 (01:00→20:15)
[2021-06-20 04:30] LABS: Basophils % 0.2 % (0.0-0.8); Hematocrit 28.8 VOL% (42.0-52.0); Hemoglobin 8.8 GM/DL (14.0-18.0); Immature Granulocytes % 1.3 %; Immature Granulocytes Absolute 0.13 #; Lymphocytes # 1.1 10*3/uL (1.4-4.0); Lymphocytes % 10.9 % (21.2-54.2); Mean Corpuscular HGB Conc 30.6 GM/DL (32-36); Mean Corpuscular Volume 104.3 FL (87-102); Monocytes % 7.1 % (1.7-12.7); NRBC # 1.72 10*3/uL; Neutrophils % 80.5 % (38.7-73.9); Platelet Count 100 T/CUMM (130-400); Red Blood Count 2.76 MC/CUMM (3.8-5.5); Red Cell Distribution Width 27.1 % (9.3-17.3); White Blood Count 9.6 T/CUMM (4-12)
[2021-06-20 04:52] LABS: Albumin 2.5 G/DL (3.4-5.0); Bilirubin,Total 2.6 MG/DL (0.20-1.00); Calcium 9.1 MG/DL (8.5-10.1); Osmolality,Calculated 288.1 MOS/KG (273-304); Potassium 4.8 MMOL/L (3.5-5.1)
[2021-06-20 05:24] LABS: Band Neutrophils 1 % (0-10); Hypochromasia 1+; Lymphocytes 5 % (20-55); Nucleated Red Blood Cells 20 (0-5); Polychromasia Slight; Segmented Neutrophils 86 % (50-85); Total Cells Counted 100
[2021-06-20 05:25] LABS: Anisocytosis 1+; Macrocytosis 1+; Platelet Estimate Decreased
[2021-06-20] MEDS: HYDROCORTISONE 100 MG VIAL IV SCH ×2 (05:55→18:11)
[2021-06-20] MEDS: PHENYLEPHRINE INJ 160 MG in SODIUM CHLORIDE 0.9% 234 ML IV PRN ×2 (05:55→15:03)
[2021-06-20 08:23] LABS: INR 1.6
[2021-06-20] MEDS: CALCIUM ACETATE 667 MG CAPSULE PO SCH ×3 (08:52→17:36)
[2021-06-20] MEDS: MULTIVITAMIN (BEROCCA) TABLET PO SCH (08:53)
[2021-06-20] MEDS: carvediloL 25 MG TABLET PO SCH ×2 (08:53→22:00)
[2021-06-20] MEDS: risperiDONE 1 MG TABLET PO SCH ×2 (08:53→22:01)
[2021-06-20 14:36] LABS: Neutrophils,Peritoneal Fluid 8 %; RBC,Peritoneal Fluid 51 T/CUMM
[2021-06-20] MEDS: cefTAZidime 500 MG in SODIUM CHLORIDE 0.9% 100 ML IV SCH (15:48)
[2021-06-20] MEDS: AMITRIPTYLINE 50 MG TABLET PO SCH (22:01)
[2021-06-21] MEDS: ALBUTEROL/IPRATROPIUM 3 ML NEB RESP TX SCH ×4 (02:01→19:47)
[2021-06-21] MEDS: HYDROCORTISONE 100 MG VIAL IV SCH ×2 (05:00→16:44)
[2021-06-21] MEDS: carvediloL 25 MG TABLET PO SCH ×2 (09:01→21:47)
[2021-06-21] MEDS: MULTIVITAMIN (BEROCCA) TABLET PO SCH (09:03)
[2021-06-21] MEDS: risperiDONE 1 MG TABLET PO SCH ×2 (09:03→21:48)
[2021-06-21] MEDS: CALCIUM ACETATE 667 MG CAPSULE PO SCH ×3 (09:03→16:44)
[2021-06-21] MEDS: MORPHINE 2 MG/1 ML SYRINGE IV PRN (15:30)
[2021-06-21] MEDS: cefTAZidime 500 MG in SODIUM CHLORIDE 0.9% 100 ML IV SCH (16:45)
[2021-06-21] MEDS ORDERED: VANCOMYCIN INJ 500 MG in SODIUM CHLORIDE 0.9% 100 ML IV ONE (17:00)
[2021-06-21] MEDS: AMITRIPTYLINE 50 MG TABLET PO SCH (21:48)
[2021-06-22] MEDS: ALBUTEROL/IPRATROPIUM 3 ML NEB RESP TX SCH ×4 (01:15→19:37)
[2021-06-22] MEDS: HYDROCORTISONE 100 MG VIAL IV SCH ×2 (04:04→17:47)
[2021-06-22 04:48] LABS: Hemoglobin 7.9 GM/DL (14.0-18.0); Immature Granulocytes % 1.2 %; Immature Granulocytes Absolute 0.08 #; Lymphocytes # 0.7 10*3/uL (1.4-4.0); Lymphocytes % 10.4 % (21.2-54.2); Mean Corpuscular HGB Conc 30.4 GM/DL (32-36); Mean Corpuscular Volume 107.9 FL (87-102); Mean Platelet Volume 13.7 FL (9.6-12.0); Monocytes % 7.4 % (1.7-12.7); NRBC # 1.41 10*3/uL; Platelet Count 80 T/CUMM (130-400); Red Blood Count 2.41 MC/CUMM (3.8-5.5); Red Cell Distribution Width 26.6 % (9.3-17.3); White Blood Count 6.7 T/CUMM (4-12)
[2021-06-22 04:54] LABS: INR 1.3; PT Patient Result 14.4 SECS (10.5-12.0); Partial Thromboplastin Time 27.6 SECS (23.9-33.8)
[2021-06-22 05:01] LABS: Albumin 1.8 G/DL (3.4-5.0); Bilirubin,Total 1.5 MG/DL (0.20-1.00); Osmolality,Calculated 296.7 MOS/KG (273-304); Potassium 4.2 MMOL/L (3.5-5.1); Total Protein 6.8 G/DL (6.4-8.2)
[2021-06-22] MEDS: risperiDONE 1 MG TABLET PO SCH ×2 (08:44→21:41)
[2021-06-22] MEDS: carvediloL 25 MG TABLET PO SCH ×2 (08:44→21:42)
[2021-06-22] MEDS: CALCIUM ACETATE 667 MG CAPSULE PO SCH ×3 (08:44→17:47)
[2021-06-22] MEDS: MULTIVITAMIN (BEROCCA) TABLET PO SCH (08:44)
[2021-06-22 08:46] LABS: Anisocytosis 3+; Band Neutrophils 5 % (0-10); Lymphocytes 9 % (20-55); Macrocytosis 2+; Metamyelocytes 2 %; Myelocytes 1 %; Nucleated Red Blood Cells 31 (0-5); Platelet Estimate Decreased; Polychromasia Slight; Segmented Neutrophils 76 % (50-85); Smudge Cells Few; Total Cells Counted 100
[2021-06-22] MEDS: ONDANSETRON 4 MG/2 ML VIAL IV PRN (08:52)
[2021-06-22] MEDS: cefTAZidime 500 MG in SODIUM CHLORIDE 0.9% 100 ML IV SCH (17:46)
[2021-06-22] MEDS: MORPHINE 2 MG/1 ML SYRINGE IV PRN (19:50)
[2021-06-22] MEDS: AMITRIPTYLINE 50 MG TABLET PO SCH (21:42)
[2021-06-23] MEDS: ALBUTEROL/IPRATROPIUM 3 ML NEB RESP TX SCH ×4 (00:44→18:25)
[2021-06-23] MEDS: MORPHINE 2 MG/1 ML SYRINGE IV PRN (01:50)
[2021-06-23] MEDS: HYDROCORTISONE 100 MG VIAL IV SCH ×2 (04:50→17:30)
[2021-06-23 05:07] LABS: Basophils % 0.1 % (0.0-0.8); Hematocrit 23.4 VOL% (42.0-52.0); Immature Granulocytes % 2.2 %; Immature Granulocytes Absolute 0.17 #; Lymphocytes # 0.6 10*3/uL (1.4-4.0); Lymphocytes % 7.8 % (21.2-54.2); Mean Corpuscular HGB Conc 29.9 GM/DL (32-36); Mean Corpuscular Volume 110.9 FL (87-102); Mean Platelet Volume 13.3 FL (9.6-12.0); Monocytes % 8.9 % (1.7-12.7); NRBC # 0.67 10*3/uL; Platelet Count 76 T/CUMM (130-400); Red Blood Count 2.11 MC/CUMM (3.8-5.5); Red Cell Distribution Width 28.1 % (9.3-17.3); White Blood Count 7.6 T/CUMM (4-12)
[2021-06-23 05:24] LABS: Albumin 1.9 G/DL (3.4-5.0); Bilirubin,Total 1.2 MG/DL (0.20-1.00); Osmolality,Calculated 309.8 MOS/KG (273-304); Potassium 4.5 MMOL/L (3.5-5.1); Total Protein 6.7 G/DL (6.4-8.2)
[2021-06-23 06:31] LABS: Platelet Estimate Decreased
[2021-06-23 06:32] LABS: Anisocytosis 3+; Burr Cells Few; Macrocytosis 2+; Polychromasia 1+
[2021-06-23 06:33] LABS: Hypochromasia Slight
[2021-06-23] MEDS ORDERED: SODIUM CHLORIDE 0.9% 1,000 ML IV PRN (08:12)
[2021-06-23] MEDS: CALCIUM ACETATE 667 MG CAPSULE PO SCH ×3 (08:15→17:40)
[2021-06-23] MEDS: carvediloL 25 MG TABLET PO SCH ×2 (08:15→21:50)
[2021-06-23] MEDS: risperiDONE 1 MG TABLET PO SCH ×2 (08:15→21:50)
[2021-06-23] MEDS: MULTIVITAMIN (BEROCCA) TABLET PO SCH (08:15)
[2021-06-23] MEDS: cefTAZidime 500 MG in SODIUM CHLORIDE 0.9% 100 ML IV SCH (17:30)
[2021-06-23] MEDS: AMITRIPTYLINE 50 MG TABLET PO SCH (21:50)
[2021-06-24] MEDS: ALBUTEROL/IPRATROPIUM 3 ML NEB RESP TX SCH ×4 (01:41→18:26)
[2021-06-24] MEDS: ONDANSETRON 4 MG/2 ML VIAL IV PRN ×3 (02:24→22:00)
[2021-06-24 04:18] LABS: Calcium 8.5 MG/DL (8.5-10.1); Osmolality,Calculated 306.4 MOS/KG (273-304); Potassium 5.3 MMOL/L (3.5-5.1)
[2021-06-24 04:24] LABS: Hematocrit 26.5 VOL% (42.0-52.0); Hemoglobin 8.2 GM/DL (14.0-18.0); Immature Granulocytes % 1.7 %; Immature Granulocytes Absolute 0.12 #; Lymphocytes # 0.8 10*3/uL (1.4-4.0); Lymphocytes % 11.2 % (21.2-54.2); Mean Corpuscular HGB Conc 30.9 GM/DL (32-36); Mean Corpuscular Volume 109.1 FL (87-102); Mean Platelet Volume 13.4 FL (9.6-12.0); NRBC # 0.39 10*3/uL; Neutrophils % 77.1 % (38.7-73.9); Platelet Count 79 T/CUMM (130-400); Red Blood Count 2.43 MC/CUMM (3.8-5.5); Red Cell Distribution Width 28.5 % (9.3-17.3); White Blood Count 6.9 T/CUMM (4-12)
[2021-06-24 04:47] LABS: Hypochromasia 1+; Platelet Estimate Decreased
[2021-06-24 04:49] LABS: Macrocytosis 1+; Polychromasia 1+
[2021-06-24] MEDS: HYDROCORTISONE 100 MG VIAL IV SCH ×2 (04:50→17:00)
[2021-06-24] MEDS: CALCIUM ACETATE 667 MG CAPSULE PO SCH ×2 (10:20→17:25)
[2021-06-24] MEDS: carvediloL 25 MG TABLET PO SCH ×2 (10:20→21:43)
[2021-06-24] MEDS: MULTIVITAMIN (BEROCCA) TABLET PO SCH (10:20)
[2021-06-24] MEDS: risperiDONE 1 MG TABLET PO SCH ×2 (10:20→21:44)
[2021-06-24] MEDS: cefTAZidime 500 MG in SODIUM CHLORIDE 0.9% 100 ML IV SCH (17:00)
[2021-06-24] MEDS ORDERED: VANCOMYCIN INJ 500 MG in SODIUM CHLORIDE 0.9% 100 ML IV ONE (17:00)
[2021-06-24] MEDS: RIFAMPIN INJ 600 MG in SODIUM CHLORIDE 0.9% 100 ML IV SCH (17:27)
[2021-06-24] MEDS: AMITRIPTYLINE 50 MG TABLET PO SCH (21:44)
[2021-06-24] MEDS: MORPHINE 2 MG/1 ML SYRINGE IV PRN (23:49)
[2021-06-25] MEDS: ALBUTEROL/IPRATROPIUM 3 ML NEB RESP TX SCH ×3 (00:20→19:20)
[2021-06-25] MEDS: HYDROCORTISONE 100 MG VIAL IV SCH ×2 (04:31→16:09)
[2021-06-25 04:36] LABS: Basophils % 0.2 % (0.0-0.8); Hematocrit 27.4 VOL% (42.0-52.0); Hemoglobin 8.5 GM/DL (14.0-18.0); Immature Granulocytes % 2.2 %; Immature Granulocytes Absolute 0.14 #; Lymphocytes # 0.6 10*3/uL (1.4-4.0); Lymphocytes % 9.5 % (21.2-54.2); Mean Platelet Volume 12.9 FL (9.6-12.0); NRBC # 0.25 10*3/uL; Neutrophils % 78.1 % (38.7-73.9); Platelet Count 73 T/CUMM (130-400); Red Blood Count 2.56 MC/CUMM (3.8-5.5); White Blood Count 6.3 T/CUMM (4-12)
[2021-06-25 05:03] LABS: Hypochromasia 1+
[2021-06-25 05:04] LABS: Macrocytosis 2+; Platelet Estimate Decreased; Polychromasia Few
[2021-06-25 05:14] LABS: Calcium 8.5 MG/DL (8.5-10.1); Potassium 4.1 MMOL/L (3.5-5.1)
[2021-06-25] MEDS ORDERED: NIFEdipine 10 MG CAPSULE PO PRN (08:49)
[2021-06-25] MEDS: CALCIUM ACETATE 667 MG CAPSULE PO SCH ×3 (08:53→16:10)
[2021-06-25] MEDS: MULTIVITAMIN (BEROCCA) TABLET PO SCH (08:53)
[2021-06-25] MEDS: risperiDONE 1 MG TABLET PO SCH ×2 (08:53→20:47)
[2021-06-25] MEDS: carvediloL 25 MG TABLET PO SCH ×2 (08:53→20:46)
[2021-06-25] MEDS: RIFAMPIN INJ 600 MG in SODIUM CHLORIDE 0.9% 100 ML IV SCH (09:12)
[2021-06-25] MEDS: cefTRIAXone 2,000 MG in SODIUM CHLORIDE 0.9% 100 ML IV SCH (09:12)
[2021-06-25] MEDS: SODIUM CHLORIDE 0.9% 1,000 ML IV SCH ×2 (09:14→11:50)
[2021-06-25] MEDS ORDERED: LIDOCAINE 2% 5 ML VIAL ONE (12:01)
[2021-06-25] MEDS ORDERED: propofoL 200 MG/20 ML VIAL IV ONE (12:01)
[2021-06-25] MEDS ORDERED: ETOMIDATE 20 MG/10 ML VIAL IV ONE (12:01)
[2021-06-25] MEDS ORDERED: PHENYLEPHRINE 1 MG/10 ML SYRINGE IV ONE (12:14)
[2021-06-25] MEDS: FLUCONAZOLE INJ 200 MG/100 ML PREMIX IV SCH (16:10)
[2021-06-25] MEDS: AMITRIPTYLINE 50 MG TABLET PO SCH (20:46)
[2021-06-26] MEDS: MORPHINE 2 MG/1 ML SYRINGE IV PRN ×2 (02:27→18:04)
[2021-06-26] MEDS: HYDROCORTISONE 100 MG VIAL IV SCH ×2 (04:21→18:00)
[2021-06-26 07:23] LABS: Basophils % 0.1 % (0.0-0.8); Hematocrit 27.9 VOL% (42.0-52.0); Hemoglobin 8.6 GM/DL (14.0-18.0); Immature Granulocytes % 0.9 %; Immature Granulocytes Absolute 0.07 #; Lymphocytes # 0.6 10*3/uL (1.4-4.0); Lymphocytes % 6.9 % (21.2-54.2); Mean Corpuscular HGB Conc 30.8 GM/DL (32-36); Mean Corpuscular Volume 107.3 FL (87-102); Mean Platelet Volume 11.2 FL (9.6-12.0); Monocytes % 8.4 % (1.7-12.7); NRBC # 0.15 10*3/uL; Neutrophils % 83.7 % (38.7-73.9); Platelet Count 81 T/CUMM (130-400); Red Cell Distribution Width 28.2 % (9.3-17.3); White Blood Count 8.1 T/CUMM (4-12)
[2021-06-26] MEDS: ALBUTEROL/IPRATROPIUM 3 ML NEB RESP TX SCH ×2 (07:28→20:49)
[2021-06-26 07:41] LABS: Hypochromasia 1+; Macrocytosis 1+; Platelet Estimate Decreased
[2021-06-26 07:42] LABS: Polychromasia Slight
[2021-06-26 07:57] LABS: Calcium 8.3 MG/DL (8.5-10.1); Osmolality,Calculated 305.5 MOS/KG (273-304); Potassium 4.1 MMOL/L (3.5-5.1)
[2021-06-26] MEDS: risperiDONE 1 MG TABLET PO SCH ×2 (08:45→20:17)
[2021-06-26] MEDS: CALCIUM ACETATE 667 MG CAPSULE PO SCH ×4 (08:45→17:59)
[2021-06-26] MEDS: carvediloL 25 MG TABLET PO SCH ×2 (08:45→20:18)
[2021-06-26] MEDS: MULTIVITAMIN (BEROCCA) TABLET PO SCH (08:45)
[2021-06-26] MEDS ORDERED: ZALEPLON 5 MG CAPSULE PO PRN (09:30)
[2021-06-26] MEDS: cefTRIAXone 2,000 MG in SODIUM CHLORIDE 0.9% 100 ML IV SCH (14:31)
[2021-06-26] MEDS: FLUCONAZOLE INJ 200 MG/100 ML PREMIX IV SCH (15:23)
[2021-06-26] MEDS: ONDANSETRON 4 MG/2 ML VIAL IV PRN (16:10)
[2021-06-26] MEDS ORDERED: VANCOMYCIN INJ 500 MG in SODIUM CHLORIDE 0.9% 100 ML IV ONE (17:00)
[2021-06-26] MEDS: RIFAMPIN INJ 600 MG in SODIUM CHLORIDE 0.9% 100 ML IV SCH (18:15)
[2021-06-26] MEDS: AMITRIPTYLINE 50 MG TABLET PO SCH (20:18)
[2021-06-27] MEDS: HYDROCORTISONE 100 MG VIAL IV SCH ×2 (04:09→16:48)
[2021-06-27] MEDS: MORPHINE 2 MG/1 ML SYRINGE IV PRN ×3 (04:11→22:12)
[2021-06-27 05:03] LABS: Hematocrit 29.4 VOL% (42.0-52.0); Hemoglobin 8.8 GM/DL (14.0-18.0); Immature Granulocytes % 0.9 %; Immature Granulocytes Absolute 0.07 #; Lymphocytes # 0.4 10*3/uL (1.4-4.0); Lymphocytes % 5.4 % (21.2-54.2); Mean Corpuscular HGB Conc 29.9 GM/DL (32-36); Mean Corpuscular Volume 108.5 FL (87-102); Mean Platelet Volume 12.8 FL (9.6-12.0); Monocytes % 5.2 % (1.7-12.7); NRBC # 0.08 10*3/uL; Neutrophils % 88.5 % (38.7-73.9); Platelet Count 75 T/CUMM (130-400); Red Blood Count 2.71 MC/CUMM (3.8-5.5); Red Cell Distribution Width 27.9 % (9.3-17.3); White Blood Count 7.5 T/CUMM (4-12)
[2021-06-27 05:27] LABS: Hypochromasia 1+; Platelet Estimate Decreased
[2021-06-27 05:28] LABS: Macrocytosis 1+
[2021-06-27 07:14] LABS: Calcium 7.9 MG/DL (8.5-10.1); Osmolality,Calculated 296.3 MOS/KG (273-304); Potassium 4.1 MMOL/L (3.5-5.1)
[2021-06-27] MEDS: ALBUTEROL/IPRATROPIUM 3 ML NEB RESP TX SCH ×2 (07:33→20:14)
[2021-06-27] MEDS: cefTRIAXone 2,000 MG in SODIUM CHLORIDE 0.9% 100 ML IV SCH (09:49)
[2021-06-27] MEDS: risperiDONE 1 MG TABLET PO SCH ×2 (09:50→20:31)
[2021-06-27] MEDS: CALCIUM ACETATE 667 MG CAPSULE PO SCH ×3 (09:50→16:49)
[2021-06-27] MEDS: carvediloL 25 MG TABLET PO SCH ×2 (09:50→20:31)
[2021-06-27] MEDS: MULTIVITAMIN (BEROCCA) TABLET PO SCH (09:50)
[2021-06-27] MEDS: FLUCONAZOLE INJ 200 MG/100 ML PREMIX IV SCH (13:02)
[2021-06-27] MEDS: AMITRIPTYLINE 50 MG TABLET PO SCH (20:31)
[2021-06-27] MEDS: ZALEPLON 5 MG CAPSULE PO SCH (20:31)
[2021-06-28] MEDS: HYDROCORTISONE 100 MG VIAL IV SCH (05:47)
[2021-06-28] MEDS: ALBUTEROL/IPRATROPIUM 3 ML NEB RESP TX SCH ×2 (07:16→19:28)
[2021-06-28] MEDS: CALCIUM ACETATE 667 MG CAPSULE PO SCH ×5 (09:23→16:53)
[2021-06-28] MEDS: risperiDONE 1 MG TABLET PO SCH ×2 (09:23→20:19)
[2021-06-28] MEDS: carvediloL 25 MG TABLET PO SCH ×2 (09:24→20:18)
[2021-06-28] MEDS: MULTIVITAMIN (BEROCCA) TABLET PO SCH (09:24)
[2021-06-28] MEDS: cefTRIAXone 2,000 MG in SODIUM CHLORIDE 0.9% 100 ML IV SCH ×2 (09:25→14:58)
[2021-06-28] MEDS ORDERED: VANCOMYCIN INJ 500 MG in SODIUM CHLORIDE 0.9% 100 ML IV ONE (14:00)
[2021-06-28] MEDS: FLUCONAZOLE INJ 200 MG/100 ML PREMIX IV SCH (15:31)
[2021-06-28] MEDS: MORPHINE 2 MG/1 ML SYRINGE IV PRN ×2 (17:46→23:39)
[2021-06-28] MEDS: AMITRIPTYLINE 50 MG TABLET PO SCH ×2 (20:18→20:20)
[2021-06-28] MEDS: ZALEPLON 5 MG CAPSULE PO SCH (20:19)
[2021-06-29] MEDS: ALBUTEROL/IPRATROPIUM 3 ML NEB RESP TX SCH ×2 (07:24→20:58)
[2021-06-29] MEDS: carvediloL 25 MG TABLET PO SCH ×2 (08:39→20:34)
[2021-06-29] MEDS: cefTRIAXone 2,000 MG in SODIUM CHLORIDE 0.9% 100 ML IV SCH (08:39)
[2021-06-29] MEDS: CALCIUM ACETATE 667 MG CAPSULE PO SCH ×4 (08:40→18:05)
[2021-06-29] MEDS: risperiDONE 1 MG TABLET PO SCH ×2 (08:40→20:34)
[2021-06-29] MEDS: MULTIVITAMIN (BEROCCA) TABLET PO SCH (08:40)
[2021-06-29] MEDS: MORPHINE 2 MG/1 ML SYRINGE IV PRN ×3 (09:46→20:39)
[2021-06-29] MEDS: FLUCONAZOLE INJ 200 MG/100 ML PREMIX IV SCH (13:45)
[2021-06-29] MEDS: ZALEPLON 5 MG CAPSULE PO SCH (20:34)
[2021-06-29] MEDS: AMITRIPTYLINE 50 MG TABLET PO SCH (20:35)
[2021-06-30] MEDS: MORPHINE 2 MG/1 ML SYRINGE IV PRN ×2 (00:29→04:13)
[2021-06-30] MEDS: ALBUTEROL/IPRATROPIUM 3 ML NEB RESP TX SCH (07:07)
[2021-06-30] MEDS: CALCIUM ACETATE 667 MG CAPSULE PO SCH ×2 (09:30→13:10)
[2021-06-30] MEDS: risperiDONE 1 MG TABLET PO SCH (09:30)
[2021-06-30] MEDS: MULTIVITAMIN (BEROCCA) TABLET PO SCH (09:31)
[2021-06-30] MEDS: carvediloL 25 MG TABLET PO SCH (09:31)
[2021-06-30] MEDS: cefTRIAXone 2,000 MG in SODIUM CHLORIDE 0.9% 100 ML IV SCH (09:38)
[2021-06-30] MEDS ORDERED: METOCLOPRAMIDE 10 MG/10 ML UDCUP PO SCH (11:30)
[2021-06-30 11:32] VITALS: BP 105/63
== END 2021-06-30 13:08 | disposition home or self-care (01) | DRG 371 ==
LOC: N.ED 20:07 → N.EDINP 20:07 → SUATTDRO 06-16 06:19 → N.EDINP 06-16 08:40 → N.5E 06-16 08:55 → SUATTDRO 06-16 14:18 → N.ICU 06-17 09:57 → N.TELEN 06-25 14:21
PROVIDERS: ADMIT Internal Medicine; ATTEND Internal Medicine

== ENCOUNTER 2021-07-04 12:49 | Inpatient (IN) ==
[2021-07-04] MEDS ORDERED: PANTOPRAZOLE 40 MG VIAL IV STA (14:27)
[2021-07-04 15:21] LABS: Albumin 1.6 G/DL (3.4-5.0); Bilirubin,Total 0.6 MG/DL (0.20-1.00); Calcium 7.3 MG/DL (8.5-10.1); Osmolality,Calculated 285.5 MOS/KG (273-304); Potassium 5.2 MMOL/L (3.5-5.1)
[2021-07-04 16:05] LABS: Basophils % 0.2 % (0.0-0.8); Hematocrit 26.5 VOL% (42.0-52.0); Hemoglobin 7.9 GM/DL (14.0-18.0); Immature Granulocytes % 0.7 %; Immature Granulocytes Absolute 0.04 #; Lymphocytes # 1.3 10*3/uL (1.4-4.0); Lymphocytes % 21.7 % (21.2-54.2); Mean Corpuscular HGB Conc 29.8 GM/DL (32-36); Mean Corpuscular Volume 109.1 FL (87-102); Mean Platelet Volume 12.8 FL (9.6-12.0); Neutrophils % 70.4 % (38.7-73.9); Platelet Count 66 T/CUMM (130-400); Red Blood Count 2.43 MC/CUMM (3.8-5.5); Red Cell Distribution Width 23.2 % (9.3-17.3)
[2021-07-04 16:50] LABS: PT Patient Result 11.2 SECS (10.5-12.0)
[2021-07-04] MEDS ORDERED: GLUCAGON 1 MG VIAL IM PRN (17:11)
[2021-07-04] MEDS ORDERED: DEXTROSE 50% 25 GM/50 ML VIAL IV PRN (17:11)
[2021-07-04] MEDS ORDERED: DOCUSATE SODIUM 100 MG CAPSULE PO PRN (17:11)
[2021-07-04] MEDS ORDERED: ACETAMINOPHEN 325 MG TABLET PO PRN (17:11)
[2021-07-04 17:15] LABS: Lymphocytes 18 % (20-55); Segmented Neutrophils 79 % (50-85); Smudge Cells Few; Total Cells Counted 100
[2021-07-04 17:21] LABS: Anisocytosis 1+; Hypochromasia 1+; Macrocytosis 1+
[2021-07-04 17:22] LABS: Platelet Estimate Decreased
[2021-07-04] MEDS: MORPHINE 2 MG/1 ML SYRINGE IV PRN (20:48)
[2021-07-04] MEDS: PANTOPRAZOLE 40 MG VIAL IV SCH (20:52)
[2021-07-05] MEDS: MORPHINE 2 MG/1 ML SYRINGE IV PRN ×4 (00:54→14:22)
[2021-07-05 03:31] LABS: Albumin 1.5 G/DL (3.4-5.0); Bilirubin,Total 0.7 MG/DL (0.20-1.00); Calcium 7.1 MG/DL (8.5-10.1); Potassium 4.8 MMOL/L (3.5-5.1); Total Protein 5.8 G/DL (6.4-8.2)
[2021-07-05 08:16] LABS: Basophils % 0.6 % (0.0-0.8); Hematocrit 25.9 VOL% (42.0-52.0); Hemoglobin 7.8 GM/DL (14.0-18.0); Immature Granulocytes % 0.6 %; Immature Granulocytes Absolute 0.02 #; Lymphocytes % 28.9 % (21.2-54.2); Mean Corpuscular HGB Conc 30.1 GM/DL (32-36); Mean Corpuscular Volume 107.5 FL (87-102); Mean Platelet Volume 11.3 FL (9.6-12.0); Monocytes % 6.1 % (1.7-12.7); Neutrophils % 63.8 % (38.7-73.9); Platelet Count 55 T/CUMM (130-400); Red Blood Count 2.41 MC/CUMM (3.8-5.5); Red Cell Distribution Width 22.4 % (9.3-17.3); White Blood Count 3.4 T/CUMM (4-12)
[2021-07-05] MEDS: risperiDONE 1 MG TABLET PO SCH ×2 (09:46→21:10)
[2021-07-05] MEDS: CALCIUM ACETATE 667 MG CAPSULE PO SCH ×3 (09:46→17:00)
[2021-07-05] MEDS: carvediloL 25 MG TABLET PO SCH ×2 (09:47→21:10)
[2021-07-05] MEDS: METOCLOPRAMIDE 10 MG/10 ML UDCUP PO SCH ×3 (11:46→21:18)
[2021-07-05 12:35] LABS: Lymphocytes 17 % (20-55); Macrocytosis 3+; Platelet Estimate Decreased; Segmented Neutrophils 72 % (50-85); Total Cells Counted 100
[2021-07-05] MEDS: PANTOPRAZOLE 40 MG VIAL IV SCH ×2 (13:47→21:10)
[2021-07-05 16:20] LABS: Folate 8.33 NG/ML (5.38-24.0)
[2021-07-05] MEDS: AZITHROMYCIN 250 MG TABLET PO SCH (17:01)
[2021-07-05] MEDS: AMITRIPTYLINE 50 MG TABLET PO SCH (21:09)
[2021-07-06 06:22] LABS: Albumin 1.3 G/DL (3.4-5.0); Bilirubin,Total 0.7 MG/DL (0.20-1.00); Calcium 7.1 MG/DL (8.5-10.1); Osmolality,Calculated 291.8 MOS/KG (273-304); Potassium 4.5 MMOL/L (3.5-5.1); Total Protein 5.5 G/DL (6.4-8.2)
[2021-07-06 06:25] LABS: Basophils % 0.5 % (0.0-0.8); Hematocrit 24.1 VOL% (42.0-52.0); Hemoglobin 7.2 GM/DL (14.0-18.0); Immature Granulocytes % 0.9 %; Immature Granulocytes Absolute 0.02 #; Lymphocytes # 0.6 10*3/uL (1.4-4.0); Mean Corpuscular HGB Conc 29.9 GM/DL (32-36); Mean Corpuscular Volume 108.6 FL (87-102); Mean Platelet Volume 12.9 FL (9.6-12.0); Neutrophils % 61.6 % (38.7-73.9); Platelet Count 66 T/CUMM (130-400); Red Blood Count 2.22 MC/CUMM (3.8-5.5); Red Cell Distribution Width 22.1 % (9.3-17.3); White Blood Count 2.1 T/CUMM (4-12)
[2021-07-06] MEDS: CALCIUM ACETATE 667 MG CAPSULE PO SCH ×3 (11:06→18:02)
[2021-07-06] MEDS: risperiDONE 1 MG TABLET PO SCH ×2 (11:07→20:58)
[2021-07-06] MEDS: PANTOPRAZOLE 40 MG VIAL IV SCH ×2 (11:07→20:54)
[2021-07-06] MEDS: AZITHROMYCIN 250 MG TABLET PO SCH (11:07)
[2021-07-06] MEDS: carvediloL 25 MG TABLET PO SCH ×2 (11:07→21:30)
[2021-07-06] MEDS: METOCLOPRAMIDE 10 MG/10 ML UDCUP PO SCH ×4 (11:15→20:58)
[2021-07-06 11:39] LABS: Lymphocytes 21 % (20-55); Segmented Neutrophils 74 % (50-85); Total Cells Counted 100
[2021-07-06 11:40] LABS: Macrocytosis 2+; Platelet Estimate Decreased
[2021-07-06] MEDS: cefTRIAXone 1,000 MG in SODIUM CHLORIDE 0.9% 100 ML IV SCH (11:59)
[2021-07-06] MEDS ORDERED: NYSTATIN 500,000 UNIT/5 ML UDCUP SWISH/SWAL SCH (13:00)
[2021-07-06] MEDS ORDERED: VANCOMYCIN INJ 500 MG in SODIUM CHLORIDE 0.9% 100 ML IV PRN (13:07)
[2021-07-06] MEDS ORDERED: SODIUM CHLORIDE 0.9% 1,000 ML IV PRN (13:56)
[2021-07-06 14:17] LABS: Hematocrit 27.5 VOL% (42.0-52.0); Hemoglobin 8.1 GM/DL (14.0-18.0)
[2021-07-06] MEDS: FLUCONAZOLE 100 MG TABLET PO SCH (14:38)
[2021-07-06] MEDS ORDERED: VANCOMYCIN INJ 500 MG in SODIUM CHLORIDE 0.9% 100 ML IV ONE (15:00)
[2021-07-06] MEDS: ONDANSETRON 4 MG/2 ML VIAL IV PRN (20:53)
[2021-07-06] MEDS: AMITRIPTYLINE 50 MG TABLET PO SCH (20:58)
[2021-07-07 07:12] LABS: Basophils % 0.5 % (0.0-0.8); Hematocrit 22.1 VOL% (42.0-52.0); Immature Granulocytes % 0.5 %; Immature Granulocytes Absolute 0.01 #; Lymphocytes # 0.6 10*3/uL (1.4-4.0); Lymphocytes % 25.9 % (21.2-54.2); Mean Corpuscular HGB Conc 30.3 GM/DL (32-36); Mean Corpuscular Volume 106.8 FL (87-102); Mean Platelet Volume 11.4 FL (9.6-12.0); Neutrophils % 64.1 % (38.7-73.9); Platelet Count 70 T/CUMM (130-400); Red Blood Count 2.07 MC/CUMM (3.8-5.5); Red Cell Distribution Width 21.5 % (9.3-17.3); White Blood Count 2.1 T/CUMM (4-12)
[2021-07-07 07:15] LABS: Hemoglobin 6.7 GM/DL (14.0-18.0)
[2021-07-07 07:23] LABS: Albumin 1.5 G/DL (3.4-5.0); Bilirubin,Total 1.4 MG/DL (0.20-1.00); Calcium 7.1 MG/DL (8.5-10.1); Potassium 4.8 MMOL/L (3.5-5.1); Total Protein 5.9 G/DL (6.4-8.2)
[2021-07-07 07:39] LABS: Hypochromasia 1+; Lymphocytes 19 % (20-55); Microcytosis 1+; Platelet Estimate Decreased; Segmented Neutrophils 70 % (50-85); Total Cells Counted 100
[2021-07-07] MEDS: FLUCONAZOLE 100 MG TABLET PO SCH (08:58)
[2021-07-07] MEDS: risperiDONE 1 MG TABLET PO SCH ×2 (08:58→20:29)
[2021-07-07] MEDS: METOCLOPRAMIDE 10 MG/10 ML UDCUP PO SCH ×4 (08:58→20:29)
[2021-07-07] MEDS: PANTOPRAZOLE 40 MG VIAL IV SCH ×2 (08:58→20:29)
[2021-07-07] MEDS: CALCIUM ACETATE 667 MG CAPSULE PO SCH ×3 (08:58→16:53)
[2021-07-07] MEDS: carvediloL 25 MG TABLET PO SCH ×2 (08:58→20:29)
[2021-07-07] MEDS ORDERED: TENOFOVIR DISOPROXIL FUMARATE 300 MG PO SCH (09:00)
[2021-07-07] MEDS: cefTRIAXone 1,000 MG in SODIUM CHLORIDE 0.9% 100 ML IV SCH (11:57)
[2021-07-07] MEDS: SODIUM CHLORIDE 0.9% 1,000 ML IV SCH (14:57)
[2021-07-07] MEDS: ONDANSETRON 4 MG/2 ML VIAL IV PRN ×2 (17:43→21:32)
[2021-07-07] MEDS: AMITRIPTYLINE 50 MG TABLET PO SCH (20:29)
[2021-07-07] MEDS: TRIAMCINOLONE 0.025% CREAM 15 GM TUBE TOP SCH (20:30)
[2021-07-08] MEDS: METOCLOPRAMIDE 10 MG/10 ML UDCUP PO SCH ×4 (08:00→21:17)
[2021-07-08] MEDS: risperiDONE 1 MG TABLET PO SCH ×2 (08:43→20:15)
[2021-07-08] MEDS: carvediloL 25 MG TABLET PO SCH ×2 (08:44→20:15)
[2021-07-08] MEDS: PANTOPRAZOLE 40 MG VIAL IV SCH ×2 (08:44→20:16)
[2021-07-08] MEDS: CALCIUM ACETATE 667 MG CAPSULE PO SCH ×3 (08:44→16:08)
[2021-07-08] MEDS: FLUCONAZOLE 100 MG TABLET PO SCH (08:44)
[2021-07-08] MEDS: ONDANSETRON 4 MG/2 ML VIAL IV PRN ×2 (08:53→21:31)
[2021-07-08] MEDS: SODIUM CHLORIDE 0.9% 1,000 ML IV SCH (10:23)
[2021-07-08 10:43] LABS: Basophils % 0.4 % (0.0-0.8); Hematocrit 25.7 VOL% (42.0-52.0); Immature Granulocytes % 0.4 %; Immature Granulocytes Absolute 0.01 #; Lymphocytes # 0.7 10*3/uL (1.4-4.0); Lymphocytes % 30.1 % (21.2-54.2); Mean Corpuscular HGB Conc 31.5 GM/DL (32-36); Mean Corpuscular Volume 98.8 FL (87-102); Mean Platelet Volume 11.7 FL (9.6-12.0); Monocytes % 10.5 % (1.7-12.7); Neutrophils % 58.6 % (38.7-73.9); Red Cell Distribution Width 21.5 % (9.3-17.3); White Blood Count 2.3 T/CUMM (4-12)
[2021-07-08 10:46] LABS: Hemoglobin 8.1 GM/DL (14.0-18.0); Platelet Count 65 T/CUMM (130-400)
[2021-07-08] MEDS: TRIAMCINOLONE 0.025% CREAM 15 GM TUBE TOP SCH ×2 (11:01→20:14)
[2021-07-08 11:11] LABS: Lymphocytes 21 % (20-55); Platelet Estimate Decreased; Segmented Neutrophils 74 % (50-85); Total Cells Counted 100
[2021-07-08 11:12] LABS: Hypochromasia 1+; Microcytosis 1+
[2021-07-08 11:17] LABS: Albumin 1.5 G/DL (3.4-5.0); Bilirubin,Total 0.6 MG/DL (0.20-1.00); Calcium 7.2 MG/DL (8.5-10.1); Osmolality,Calculated 292.5 MOS/KG (273-304); Potassium 5.9 MMOL/L (3.5-5.1); Total Protein 5.9 G/DL (6.4-8.2)
[2021-07-08] MEDS: cefTRIAXone 1,000 MG in SODIUM CHLORIDE 0.9% 100 ML IV SCH (11:28)
[2021-07-08 16:38] LABS: % CD4 (T Cells) 13 % (32-64); % CD8 (T Cells) 65 % (15-40); 4/8 Ratio 0.2 (>=0.9)
[2021-07-08] MEDS ORDERED: VANCOMYCIN INJ 500 MG in SODIUM CHLORIDE 0.9% 100 ML IV ONE (17:00)
[2021-07-08] MEDS: AMITRIPTYLINE 50 MG TABLET PO SCH (20:15)
[2021-07-08] MEDS: MEGESTROL 400 MG/10 ML UDCUP PO SCH (20:22)
[2021-07-09 05:42] LABS: Basophils % 0.8 % (0.0-0.8); Hematocrit 26.9 VOL% (42.0-52.0); Hemoglobin 8.4 GM/DL (14.0-18.0); Immature Granulocytes % 0.8 %; Immature Granulocytes Absolute 0.02 #; Lymphocytes # 0.8 10*3/uL (1.4-4.0); Lymphocytes % 30.5 % (21.2-54.2); Mean Corpuscular HGB Conc 31.2 GM/DL (32-36); Mean Corpuscular Volume 101.5 FL (87-102); Mean Platelet Volume 12.9 FL (9.6-12.0); Monocytes % 10.5 % (1.7-12.7); Neutrophils % 57.4 % (38.7-73.9); Platelet Count 61 T/CUMM (130-400); Red Blood Count 2.65 MC/CUMM (3.8-5.5); Red Cell Distribution Width 21.2 % (9.3-17.3); White Blood Count 2.6 T/CUMM (4-12)
[2021-07-09 06:07] LABS: Hypochromasia 1+; Macrocytosis Slight; Platelet Estimate Decreased
[2021-07-09 08:11] LABS: % CD16+CD56 (NK cells) 10 % (4-28); % CD19 (B Cells) 3 % (7-24); % CD4 (T Cells) 13 % (32-64); 4/8 Ratio 0.2 (>=0.9); CD16+CD56 (NK cells) 48 cells/mcL (59-513); CD19 (B Cells) 13 cells/mcL (81-409)
[2021-07-09] MEDS: MEGESTROL 400 MG/10 ML UDCUP PO SCH ×2 (09:08→09:11)
[2021-07-09] MEDS: METOCLOPRAMIDE 10 MG/10 ML UDCUP PO SCH ×2 (09:08→12:21)
[2021-07-09] MEDS: risperiDONE 1 MG TABLET PO SCH (09:09)
[2021-07-09] MEDS: CALCIUM ACETATE 667 MG CAPSULE PO SCH ×2 (09:09→12:21)
[2021-07-09] MEDS: FLUCONAZOLE 100 MG TABLET PO SCH (09:09)
[2021-07-09] MEDS: carvediloL 25 MG TABLET PO SCH (09:09)
[2021-07-09] MEDS: PANTOPRAZOLE 40 MG VIAL IV SCH (09:12)
[2021-07-09] MEDS: TRIAMCINOLONE 0.025% CREAM 15 GM TUBE TOP SCH (09:17)
[2021-07-09 11:27] VITALS: BP 132/77
[2021-07-09] MEDS: cefTRIAXone 1,000 MG in SODIUM CHLORIDE 0.9% 100 ML IV SCH (12:17)
[2021-07-09 13:11] LABS: Pneumocystis jiroveci Result Negative (Negative); Pneumocystis jiroveci Source SPUTUM
== END 2021-07-09 16:00 | disposition home or self-care (01) | DRG 974 ==
LOC: N.ED 12:49 → SUATTDRO 17:06 → N.EDINP 17:06 → N.3E 19:09
PROVIDERS: ADMIT Hospitalist; ATTEND Internal Medicine

== ENCOUNTER 2021-10-05 16:37 | Inpatient (IN) ==
[2021-10-05] MEDS ORDERED: ONDANSETRON 4 MG/2 ML VIAL IV STA (17:20)
[2021-10-05] MEDS ORDERED: MORPHINE 2 MG/1 ML SYRINGE IV STA (17:20)
[2021-10-05 17:26] LABS: Basophils % 0.7 % (0.0-0.8); Hemoglobin 9.7 GM/DL (14.0-18.0); Immature Granulocytes % 0.7 %; Immature Granulocytes Absolute 0.04 #; Lymphocytes # 1.3 10*3/uL (1.4-4.0); Lymphocytes % 22.6 % (21.2-54.2); Mean Corpuscular HGB Conc 30.3 GM/DL (32-36); Mean Corpuscular Volume 108.1 FL (87-102); Monocytes % 12.1 % (1.7-12.7); Neutrophils % 63.9 % (38.7-73.9); Red Blood Count 2.96 MC/CUMM (3.8-5.5); Red Cell Distribution Width 22.6 % (9.3-17.3); White Blood Count 5.6 T/CUMM (4-12)
[2021-10-05 17:29] LABS: Platelet Count 43 T/CUMM (130-400)
[2021-10-05 17:38] LABS: INR 1.4; PT Patient Result 15.7 SECS (10.5-12.0); Partial Thromboplastin Time 32.1 SECS (23.8-32.1)
[2021-10-05 17:42] LABS: Alanine Aminotransferase 23 U/L (16-61); Albumin 2.4 G/DL (3.4-5.0); Alkaline Phosphatase 463 U/L (45-117); Amylase 135 U/L (25-115); Aspartate Amino Transferase 42 U/L (0-37); Blood Urea Nitrogen 79 MG/DL (7-18); Calcium 9.1 MG/DL (8.5-10.1); Carbon Dioxide 22 MMOL/L (21-32); Estimated Glom Filtration Rate 4 ML/MIN; Glucose 96 MG/DL (74-106); Osmolality,Calculated 291.2 MOS/KG (273-304); Potassium 3.5 MMOL/L (3.5-5.1); Sodium 134 MMOL/L (136-145); Total Protein 7.7 G/DL (6.4-8.2)
[2021-10-05 17:57] LABS: Anisocytosis 1+; Band Neutrophils 3 % (0-10); Elliptocytes Few; Hypochromasia 1+; Lymphocytes 24 % (20-55); Nucleated Red Blood Cells 7 (0-5); Platelet Estimate Decreased; Polychromasia 1+; Segmented Neutrophils 62 % (50-85); Target Cells Few; Total Cells Counted 100
[2021-10-05] MEDS ORDERED: DEXTROSE 50% 25 GM/50 ML VIAL IV PRN (20:23)
[2021-10-05] MEDS ORDERED: ONDANSETRON 4 MG/2 ML VIAL IV PRN (20:23)
[2021-10-05] MEDS ORDERED: GLUCAGON 1 MG VIAL IM PRN (20:23)
[2021-10-05] MEDS ORDERED: ACETAMINOPHEN 325 MG TABLET PO PRN (20:23)
[2021-10-05] MEDS ORDERED: ZOLPIDEM 5 MG TABLET PO PRN (20:35)
[2021-10-05] MEDS ORDERED: CALCIUM ACETATE 667 MG CAPSULE PO SCH (21:00)
[2021-10-05] MEDS: MORPHINE 2 MG/1 ML SYRINGE IV PRN (21:24)
[2021-10-05 22:05] LABS: Albumin 2.4 G/DL (3.4-5.0); Bilirubin,Indirect 0.6 MG/DL (0.0-1.0); Bilirubin,Total 2.6 MG/DL (0.20-1.00); Total Protein 7.9 G/DL (6.4-8.2)
[2021-10-05 22:08] LABS: Folate 6.02 NG/ML (5.38-24.0); Vitamin B12 > 2000 PG/ML (211-911)
[2021-10-05 22:16] LABS: % Iron Saturation 35.4 % (18-50); Ferritin 303.3 ng/mL (26-388)
[2021-10-06] MEDS: MEGESTROL 40 MG TABLET PO SCH ×3 (00:24→21:11)
[2021-10-06] MEDS: MORPHINE 2 MG/1 ML SYRINGE IV PRN ×4 (00:54→20:13)
[2021-10-06] MEDS: LACOSAMIDE 50 MG TABLET PO SCH ×3 (00:55→21:10)
[2021-10-06] MEDS ORDERED: ALBUTEROL 2.5 MG/3 ML NEB RESP TX PRN (01:00)
[2021-10-06] MEDS: ALBUTEROL/IPRATROPIUM 3 ML NEB RESP TX SCH ×4 (02:18→19:46)
[2021-10-06 07:08] LABS: Basophils % 0.6 % (0.0-0.8); Hematocrit 34.1 VOL% (42.0-52.0); Hemoglobin 10.2 GM/DL (14.0-18.0); Immature Granulocytes % 0.8 %; Immature Granulocytes Absolute 0.05 #; Mean Corpuscular HGB Conc 29.9 GM/DL (32-36); Mean Corpuscular Volume 110.4 FL (87-102); Monocytes % 13.8 % (1.7-12.7); NRBC # 0.46 10*3/uL; Neutrophils % 69.8 % (38.7-73.9); Red Blood Count 3.09 MC/CUMM (3.8-5.5); Red Cell Distribution Width 22.9 % (9.3-17.3); White Blood Count 6.6 T/CUMM (4-12)
[2021-10-06 07:18] LABS: Platelet Count 34 T/CUMM (130-400)
[2021-10-06 07:25] LABS: Platelet Estimate Decreased
[2021-10-06 07:26] LABS: Macrocytosis Slight; Polychromasia Slight
[2021-10-06 07:33] LABS: Albumin 2.5 G/DL (3.4-5.0); Bilirubin,Total 4.7 MG/DL (0.20-1.00); Calcium 9.7 MG/DL (8.5-10.1); Osmolality,Calculated 293.1 MOS/KG (273-304); Potassium 3.9 MMOL/L (3.5-5.1); Risk Ratio 4.42; Total Protein 8.3 G/DL (6.4-8.2); VLDL Cholesterol 26.2 MG/DL
[2021-10-06] MEDS ORDERED: DOLUTEGRAVIR 50 MG PO SCH ×3 (09:00→21:00)
[2021-10-06] MEDS ORDERED: DARUNAVIR ETHANOLATE 800 MG PO SCH ×2 (09:00→21:00)
[2021-10-06] MEDS ORDERED: VANCOMYCIN INJ 1,250 MG in SODIUM CHLORIDE 0.9% 250 ML IV ONE (10:18)
[2021-10-06] MEDS: SUCRALFATE 1 GM TABLET PO SCH ×2 (11:58→18:11)
[2021-10-06] MEDS: CALCIUM ACETATE 667 MG CAPSULE PO SCH ×3 (11:58→18:11)
[2021-10-06] MEDS ORDERED: VANCOMYCIN INJ 500 MG in SODIUM CHLORIDE 0.9% 250 ML IV PRN (12:07)
[2021-10-06 13:19] LABS: ABG HCO3 16.4 MMOL/L (20-26); ABG Oxygen Saturation 91.5 % (95-100); ABG PCO2 27.9 MM HG (35-48); ABG PH 7.333 (7.35-7.45); ABG PO2 76.4 MM HG (80-95); ABG TCO2 13.5 MMOL/L (23-27)
[2021-10-06] MEDS: DEXTROSE 5% 1,000 ML IV SCH (13:35)
[2021-10-06] MEDS: cefTRIAXone 1,000 MG in SODIUM CHLORIDE 0.9% 100 ML IV SCH (13:36)
[2021-10-06 13:42] LABS: Folate 7.76 NG/ML (5.38-24.0); Vitamin B12 > 2000 PG/ML (211-911)
[2021-10-06] MEDS: DEXAMETHASONE 4 MG/1 ML VIAL IV SCH ×2 (13:47→20:17)
[2021-10-06] MEDS ORDERED: VANCOMYCIN INJ 1,500 MG in SODIUM CHLORIDE 0.9% 500 ML IV ONE (15:00)
[2021-10-07] MEDS: ALBUTEROL/IPRATROPIUM 3 ML NEB RESP TX SCH ×3 (00:41→12:55)
[2021-10-07] MEDS: MORPHINE 2 MG/1 ML SYRINGE IV PRN (01:09)
[2021-10-07] MEDS: DEXAMETHASONE 4 MG/1 ML VIAL IV SCH ×2 (02:58→14:54)
[2021-10-07 03:50] VITALS: BP 113/48
[2021-10-07] MEDS ORDERED: COSYNTROPIN 0.25 MG VIAL IV ONE (08:00)
[2021-10-07 08:26] LABS: Basophils % 0.4 % (0.0-0.8); Hematocrit 32.7 VOL% (42.0-52.0); Hemoglobin 10.1 GM/DL (14.0-18.0); Immature Granulocytes % 0.8 %; Immature Granulocytes Absolute 0.04 #; Lymphocytes # 0.6 10*3/uL (1.4-4.0); Lymphocytes % 11.8 % (21.2-54.2); Mean Corpuscular HGB Conc 30.9 GM/DL (32-36); Mean Corpuscular Volume 107.6 FL (87-102); Monocytes % 4.1 % (1.7-12.7); NRBC # 0.29 10*3/uL; Neutrophils % 82.9 % (38.7-73.9); Platelet Count 44 T/CUMM (130-400); Red Blood Count 3.04 MC/CUMM (3.8-5.5); Red Cell Distribution Width 23.4 % (9.3-17.3); White Blood Count 5.1 T/CUMM (4-12)
[2021-10-07 08:42] LABS: Calcium 9.4 MG/DL (8.5-10.1); Osmolality,Calculated 288.2 MOS/KG (273-304); Potassium 4.3 MMOL/L (3.5-5.1)
[2021-10-07 08:53] LABS: Band Neutrophils 4 % (0-10); Hypochromasia 1+; Lymphocytes 10 % (20-55); Macrocytosis 1+; Nucleated Red Blood Cells 8 (0-5); Polychromasia Slight; Segmented Neutrophils 84 % (50-85); Total Cells Counted 100
[2021-10-07 08:54] LABS: Ovalocytes Slight; Platelet Estimate Decreased
[2021-10-07] MEDS ORDERED: VANCOMYCIN INJ 500 MG in SODIUM CHLORIDE 0.9% 100 ML IV PRN (13:00)
[2021-10-07] MEDS: CALCIUM ACETATE 667 MG CAPSULE PO SCH ×2 (13:46→14:53)
[2021-10-07] MEDS: SUCRALFATE 1 GM TABLET PO SCH (13:46)
[2021-10-07] MEDS: DEXTROSE 5% 1,000 ML IV SCH (14:18)
[2021-10-07] MEDS: cefTRIAXone 1,000 MG in SODIUM CHLORIDE 0.9% 100 ML IV SCH (14:52)
[2021-10-07] MEDS: MEGESTROL 40 MG TABLET PO SCH (14:53)
[2021-10-07] MEDS: LACOSAMIDE 50 MG TABLET PO SCH (14:53)
[2021-10-07 16:07] LABS: % CD4 (T Cells) 10 % (32-64); % CD8 (T Cells) 75 % (15-40); 4/8 Ratio 0.1 (>=0.9)
[2021-10-07] MEDS ORDERED: VANCOMYCIN INJ 500 MG in SODIUM CHLORIDE 0.9% 100 ML IV ONE (17:00)
[2021-10-08] MEDS ORDERED: COSYNTROPIN 0.25 MG VIAL IV ONE (08:00)
== END 2021-10-07 17:00 | disposition home or self-care (01) | DRG 640 ==
LOC: N.ED 16:37 → N.EDINP 20:22 → SUATTDRO 20:22 → N.TELES 10-06 01:39
PROVIDERS: ADMIT Internal Medicine; ATTEND Internal Medicine

== ENCOUNTER 2021-11-06 10:56 | Inpatient (IN) ==
[2021-11-06] MEDS ORDERED: PANTOPRAZOLE 40 MG VIAL IV STA (11:31)
[2021-11-06 12:10] LABS: Basophils % 0.1 % (0.0-0.8); Immature Granulocytes % 0.6 %; Immature Granulocytes Absolute 0.04 #; Lymphocytes # 3.3 10*3/uL (1.4-4.0); Lymphocytes % 46.3 % (21.2-54.2); Mean Corpuscular HGB Conc 30.3 GM/DL (32-36); Mean Corpuscular Volume 104.7 FL (87-102); Mean Platelet Volume 13.7 FL (9.6-12.0); NRBC # 0.11 10*3/uL; Platelet Count 80 T/CUMM (130-400); Red Blood Count 1.48 MC/CUMM (3.8-5.5); Red Cell Distribution Width 20.2 % (9.3-17.3); White Blood Count 7.2 T/CUMM (4-12)
[2021-11-06 12:11] LABS: Hemoglobin 4.7 GM/DL (14.0-18.0)
[2021-11-06 12:12] LABS: Hematocrit 15.5 VOL% (42.0-52.0); PT Patient Result 11.5 SECS (10.5-12.0); Partial Thromboplastin Time 27.1 SECS (23.8-32.1)
[2021-11-06 12:26] LABS: Bilirubin,Total 0.7 MG/DL (0.20-1.00); Calcium 8.1 MG/DL (8.5-10.1); Osmolality,Calculated 275.4 MOS/KG (273-304); Potassium 3.5 MMOL/L (3.5-5.1); Total Protein 7.2 G/DL (6.4-8.2)
[2021-11-06 12:32] LABS: Anisocytosis 2+; Atypical Lymphocytes Few; Band Neutrophils 8 % (0-10); Lymphocytes 40 % (20-55); Nucleated Red Blood Cells 1 (0-5); Platelet Estimate Decreased; Polychromasia Slight; Segmented Neutrophils 49 % (50-85); Smudge Cells Few; Total Cells Counted 100
[2021-11-06 12:33] LABS: Basophilic Stippling Slight; Macrocytosis 1+; Target Cells Few
[2021-11-06] MEDS ORDERED: DOCUSATE SODIUM 100 MG CAPSULE PO PRN (12:50)
[2021-11-06] MEDS ORDERED: DEXTROSE 50% 25 GM/50 ML SYRINGE IV PRN (12:50)
[2021-11-06] MEDS ORDERED: ACETAMINOPHEN 325 MG TABLET PO PRN (12:50)
[2021-11-06] MEDS ORDERED: ALUMINUM/MAGNES/SIMETH MAX STR 30 ML UDCUP PO PRN (12:50)
[2021-11-06] MEDS ORDERED: GLUCAGON 1 MG VIAL IM PRN (12:50)
[2021-11-06] MEDS ORDERED: SODIUM CHLORIDE 0.9% 1,000 ML IV PRN (12:56)
[2021-11-06 13:13] LABS: % Iron Saturation 30.4 % (18-50)
[2021-11-06 18:30] LABS: Hematocrit 19.2 VOL% (42.0-52.0)
[2021-11-06 18:49] LABS: Hemoglobin 5.9 GM/DL (14.0-18.0)
[2021-11-06] MEDS ORDERED: ONDANSETRON 4 MG/2 ML VIAL IV PRN (19:32)
[2021-11-06 19:57] LABS: Folate 11.55 NG/ML (5.38-24.0)
[2021-11-06] MEDS: PANTOPRAZOLE 40 MG VIAL IV SCH (21:42)
[2021-11-06] MEDS: LACOSAMIDE 50 MG TABLET PO SCH (21:43)
[2021-11-06] MEDS ORDERED: PROMETHAZINE INJ 25 MG in SODIUM CHLORIDE 0.9% 50 ML IV ONE (22:23)
[2021-11-06 22:42] LABS: Hemoglobin 5.4 GM/DL (14.0-18.0)
[2021-11-06 22:43] LABS: Hematocrit 17.7 VOL% (42.0-52.0)
[2021-11-07] MEDS ORDERED: SODIUM CHLORIDE 0.9% 1,000 ML IV PRN (08:03)
[2021-11-07 08:27] LABS: Hematocrit 22.9 VOL% (42.0-52.0)
[2021-11-07 08:29] LABS: Basophils % 0.4 % (0.0-0.8); Hematocrit 22.7 VOL% (42.0-52.0); Immature Granulocytes % 0.7 %; Immature Granulocytes Absolute 0.06 #; Lymphocytes # 3.5 10*3/uL (1.4-4.0); Lymphocytes % 43.9 % (21.2-54.2); Mean Corpuscular HGB Conc 32.2 GM/DL (32-36); Mean Corpuscular Volume 97.8 FL (87-102); Mean Platelet Volume 13.3 FL (9.6-12.0); NRBC # 0.12 10*3/uL; Platelet Count 69 T/CUMM (130-400); Red Cell Distribution Width 19.4 % (9.3-17.3)
[2021-11-07 08:30] LABS: Hemoglobin 7.3 GM/DL (14.0-18.0); Red Blood Count 2.32 MC/CUMM (3.8-5.5)
[2021-11-07 08:31] LABS: Hemoglobin 7.3 GM/DL (14.0-18.0)
[2021-11-07 08:51] LABS: Hypochromasia 1+
[2021-11-07 08:52] LABS: Macrocytosis 1+; Platelet Estimate Decreased; Target Cells Slight
[2021-11-07] MEDS: PANTOPRAZOLE 40 MG VIAL IV SCH ×2 (08:59→20:38)
[2021-11-07] MEDS ORDERED: SODIUM CHLORIDE 0.9% 1,000 ML IV SCH (09:00)
[2021-11-07 09:17] LABS: Hepatitis B Core IgM Quant 0.13 Index; Hepatitis B Surface Ag Quant < 0.10 Index; Hepatitis B Surface Ag Result Non-Reactive (NonReactive); Hepatitis C Virus Ab Quant 0.15 Index; Hepatitis C Virus Ab Result Non-Reactive (NonReactive)
[2021-11-07] MEDS: LACOSAMIDE 50 MG TABLET PO SCH ×2 (10:07→20:39)
[2021-11-07 10:09] LABS: Albumin 1.8 G/DL (3.4-5.0); Bilirubin,Total 1.9 MG/DL (0.20-1.00); Calcium 7.5 MG/DL (8.5-10.1); Potassium 3.5 MMOL/L (3.5-5.1); Total Protein 6.7 G/DL (6.4-8.2)
[2021-11-07] MEDS ORDERED: LIDOCAINE 2% 5 ML VIAL ONE (11:18)
[2021-11-07] MEDS ORDERED: propofoL 200 MG/20 ML VIAL IV ONE (11:18)
[2021-11-07] MEDS ORDERED: PHENYLEPHRINE 1 MG/10 ML SYRINGE IV ONE ×2 (11:21→12:00)
[2021-11-07 16:01] LABS: % CD4 (T Cells) 8 % (32-64); % CD8 (T Cells) 75 % (15-40); 4/8 Ratio 0.1 (>=0.9)
[2021-11-08 06:56] LABS: Basophils # 0.1 10*3/uL (0.0-0.2); Basophils % 0.9 % (0.0-0.8); Hemoglobin 9.1 GM/DL (14.0-18.0); Immature Granulocytes % 0.8 %; Immature Granulocytes Absolute 0.08 #; Lymphocytes # 4.3 10*3/uL (1.4-4.0); Lymphocytes % 42.9 % (21.2-54.2); Mean Corpuscular HGB Conc 30.3 GM/DL (32-36); Mean Corpuscular Volume 100.3 FL (87-102); Mean Platelet Volume 13.2 FL (9.6-12.0); NRBC # 0.27 10*3/uL; Neutrophils % 46.4 % (38.7-73.9); Platelet Count 73 T/CUMM (130-400); Red Blood Count 2.99 MC/CUMM (3.8-5.5); Red Cell Distribution Width 21.1 % (9.3-17.3)
[2021-11-08 07:43] LABS: Anisocytosis 1+; Platelet Estimate Decreased; Spherocytes Few
[2021-11-08 07:44] LABS: Macrocytosis 1+; Target Cells Few
[2021-11-08 09:31] LABS: Albumin 1.9 G/DL (3.4-5.0); Bilirubin,Total 2.5 MG/DL (0.20-1.00); Calcium 7.7 MG/DL (8.5-10.1); Osmolality,Calculated 290.8 MOS/KG (273-304); Potassium 3.5 MMOL/L (3.5-5.1)
[2021-11-08] MEDS: PANTOPRAZOLE 40 MG VIAL IV SCH ×2 (14:05→20:20)
[2021-11-08] MEDS: LACOSAMIDE 50 MG TABLET PO SCH ×2 (14:05→20:19)
[2021-11-08] MEDS ORDERED: oxyCODONE/ACETAMINOPHEN 5-325 MG TABLET PO PRN (14:18)
[2021-11-09] MEDS: LACOSAMIDE 50 MG TABLET PO SCH (09:26)
[2021-11-09] MEDS: PANTOPRAZOLE 40 MG VIAL IV SCH (09:26)
[2021-11-09 13:50] VITALS: BP 119/79
== END 2021-11-09 16:01 | disposition home or self-care (01) | DRG 380 ==
LOC: N.ED 10:56 → N.3E 12:50 → SUATTDRO 12:50 → N.3E 16:59
PROVIDERS: ADMIT Internal Medicine; ATTEND Internal Medicine

== ENCOUNTER 2021-11-15 08:26 | Inpatient (IN) ==
[2021-11-15] MEDS ORDERED: SODIUM CHLORIDE 0.9% 500 ML IV STA (08:39)
[2021-11-15] MEDS ORDERED: DEXTROSE 50% 25 GM/50 ML SYRINGE IV ONE (08:39)
[2021-11-15] MEDS ORDERED: VANCOMYCIN INJ 1,000 MG in SODIUM CHLORIDE 0.9% 250 ML IV STA (08:42)
[2021-11-15] MEDS ORDERED: DEXTROSE 50% 25 GM/50 ML VIAL IV STA (08:45)
[2021-11-15] MEDS ORDERED: DEXTROSE 10% 1,000 ML IV SCH (09:00)
[2021-11-15 09:32] LABS: Albumin 1.3 G/DL (3.4-5.0); Bilirubin,Total 3.4 MG/DL (0.20-1.00); Calcium 7.2 MG/DL (8.5-10.1); Osmolality,Calculated 286.1 MOS/KG (273-304); Total Protein 6.2 G/DL (6.4-8.2)
[2021-11-15 09:38] LABS: INR 2.2
[2021-11-15 09:40] LABS: Basophils % 0.2 % (0.0-0.8); Hematocrit 25.8 VOL% (42.0-52.0); Hemoglobin 7.6 GM/DL (14.0-18.0); Immature Granulocytes % 2.3 %; Immature Granulocytes Absolute 0.31 #; Lymphocytes # 0.7 10*3/uL (1.4-4.0); Lymphocytes % 4.9 % (21.2-54.2); Mean Corpuscular HGB Conc 29.5 GM/DL (32-36); Mean Corpuscular Volume 103.6 FL (87-102); Monocytes % 2.8 % (1.7-12.7); NRBC # 0.02 10*3/uL; Neutrophils % 89.8 % (38.7-73.9); Red Blood Count 2.49 MC/CUMM (3.8-5.5); Red Cell Distribution Width 20.1 % (9.3-17.3); White Blood Count 13.6 T/CUMM (4-12)
[2021-11-15 09:44] LABS: Platelet Count 23 T/CUMM (130-400)
[2021-11-15 09:45] LABS: PT Patient Result 23.6 SECS (10.5-12.0); Partial Thromboplastin Time 52.8 SECS (23.8-32.1)
[2021-11-15] MEDS ORDERED: HYDROCORTISONE 100 MG VIAL IV STA (10:01)
[2021-11-15 10:04] LABS: Band Neutrophils 9 % (0-10); Lymphocytes 1 % (20-55); Segmented Neutrophils 88 % (50-85); Total Cells Counted 100
[2021-11-15] MEDS ORDERED: SODIUM CHLORIDE 0.9% 2,100 ML IV ONE (10:05)
[2021-11-15 10:06] LABS: Platelet Estimate Decreased
[2021-11-15 10:07] LABS: Hypochromasia 1+; Microcytosis 1+
[2021-11-15] MEDS ORDERED: LEVOFLOXACIN INJ 750 MG/150 ML PREMIX IV ONE (10:30)
[2021-11-15] MEDS ORDERED: DOCUSATE SODIUM 100 MG CAPSULE PO PRN (10:34)
[2021-11-15] MEDS ORDERED: hydrALAZINE 20 MG/1 ML VIAL IV PRN (10:34)
[2021-11-15] MEDS ORDERED: guaiFENesin/DM ER 600-30 MG TABLET PO PRN (10:34)
[2021-11-15] MEDS ORDERED: ACETAMINOPHEN 325 MG TABLET PO PRN (10:34)
[2021-11-15] MEDS ORDERED: GLUCAGON 1 MG VIAL IM PRN (10:34)
[2021-11-15] MEDS ORDERED: DEXTROSE 50% 25 GM/50 ML SYRINGE IV PRN (10:41)
[2021-11-15] MEDS ORDERED: SODIUM CHLORIDE 0.9% 500 ML IV ONE (10:46)
[2021-11-15 10:47] LABS: Sedimentation Rate-Westergren 80 MM/HR (0-15)
[2021-11-15] MEDS: HYDROCORTISONE 100 MG VIAL IV SCH ×3 (11:41→21:44)
[2021-11-15] MEDS: ALBUTEROL 2.5 MG/3 ML NEB RESP TX SCH ×2 (15:34→20:04)
[2021-11-16] MEDS: ALBUTEROL 2.5 MG/3 ML NEB RESP TX SCH ×4 (01:26→20:35)
[2021-11-16 01:34] LABS: Basophils % 0.1 % (0.0-0.8); Hematocrit 28.2 VOL% (42.0-52.0); Hemoglobin 8.7 GM/DL (14.0-18.0); Immature Granulocytes % 0.6 %; Immature Granulocytes Absolute 0.08 #; Lymphocytes # 1.5 10*3/uL (1.4-4.0); Lymphocytes % 10.7 % (21.2-54.2); Mean Corpuscular HGB Conc 30.9 GM/DL (32-36); Mean Corpuscular Volume 100.4 FL (87-102); Monocytes % 7.1 % (1.7-12.7); NRBC # 0.02 10*3/uL; Neutrophils % 81.5 % (38.7-73.9); Platelet Count 12 T/CUMM (130-400); Red Blood Count 2.81 MC/CUMM (3.8-5.5); Red Cell Distribution Width 19.5 % (9.3-17.3); White Blood Count 13.9 T/CUMM (4-12)
[2021-11-16] MEDS ORDERED: SODIUM CHLORIDE 0.9% 500 ML IV ONE (01:51)
[2021-11-16 02:00] LABS: Calcium 7.3 MG/DL (8.5-10.1); Potassium 4.4 MMOL/L (3.5-5.1); Thyroid Stimulating Hormone 5.36 uIU/ml (0.358-3.74)
[2021-11-16] MEDS: ONDANSETRON 4 MG/2 ML VIAL IV PRN (02:14)
[2021-11-16 03:30] LABS: Band Neutrophils 5 % (0-10); Lymphocytes 12 % (20-55); Metamyelocytes 1 %; Segmented Neutrophils 78 % (50-85); Total Cells Counted 100
[2021-11-16 03:33] LABS: Hypochromasia 2+; Platelet Estimate Decreased
[2021-11-16 03:34] LABS: Ovalocytes 1+; Polychromasia Few
[2021-11-16] MEDS: HYDROCORTISONE 100 MG VIAL IV SCH ×3 (05:22→17:10)
[2021-11-16] MEDS: HYDROmorphone 2 MG/1 ML VIAL IV PRN (11:00)
[2021-11-16] MEDS: PANTOPRAZOLE 40 MG TABLET PO SCH (12:39)
[2021-11-16] MEDS ORDERED: ALBUMIN 25% 25 GM/100 ML VIAL IV ONE (16:33)
[2021-11-16] MEDS ORDERED: VANCOMYCIN INJ 1,000 MG in SODIUM CHLORIDE 0.9% 250 ML IV ONE (18:00)
[2021-11-17] MEDS: ALBUTEROL 2.5 MG/3 ML NEB RESP TX SCH ×4 (00:25→19:00)
[2021-11-17 02:09] LABS: Basophils % 0.2 % (0.0-0.8); Hemoglobin 7.3 GM/DL (14.0-18.0); Immature Granulocytes % 0.9 %; Immature Granulocytes Absolute 0.11 #; Lymphocytes # 1.9 10*3/uL (1.4-4.0); Lymphocytes % 15.4 % (21.2-54.2); Mean Corpuscular HGB Conc 30.4 GM/DL (32-36); Mean Corpuscular Volume 101.3 FL (87-102); Monocytes % 7.5 % (1.7-12.7); NRBC # 0.03 10*3/uL; Platelet Count 14 T/CUMM (130-400); Red Blood Count 2.37 MC/CUMM (3.8-5.5); White Blood Count 12.4 T/CUMM (4-12)
[2021-11-17] MEDS: HYDROCORTISONE 100 MG VIAL IV SCH ×5 (02:16→22:40)
[2021-11-17 02:23] LABS: Calcium 7.5 MG/DL (8.5-10.1); Osmolality,Calculated 283.8 MOS/KG (273-304); Potassium 4.9 MMOL/L (3.5-5.1)
[2021-11-17] MEDS ORDERED: SODIUM CHLORIDE 0.9% 1,000 ML IV PRN (02:30)
[2021-11-17 04:36] LABS: Hypochromasia 1+; Lymphocytes 7 % (20-55); Microcytosis 1+; Platelet Estimate Decreased; Segmented Neutrophils 84 % (50-85); Total Cells Counted 100
[2021-11-17] MEDS: PANTOPRAZOLE 40 MG TABLET PO SCH (09:38)
[2021-11-17] MEDS ORDERED: LEVOFLOXACIN INJ 500 MG/100 ML PREMIX IV SCH (10:30)
[2021-11-17] MEDS: VANCOMYCIN 50 MG/ML 60 ML/BOTTLE PO SCH ×3 (14:33→21:25)
[2021-11-17] MEDS: ONDANSETRON 4 MG/2 ML VIAL IV PRN (19:59)
[2021-11-17] MEDS ORDERED: LACTOBACILLUS ACIDOPHILUS/BULGARICUS 1 PACKET PO SCH (21:00)
[2021-11-17] MEDS: HYDROmorphone 2 MG/1 ML VIAL IV PRN (21:38)
[2021-11-17] MEDS ORDERED: PROMETHAZINE 25 MG/1 ML VIAL IM PRN (22:09)
[2021-11-18] MEDS ORDERED: CALCIUM CHLORIDE 1,000 MG/10 ML SYRINGE IV ONE (01:54)
[2021-11-18] MEDS ORDERED: DEXTROSE 50% 25 GM/50 ML SYRINGE IV ONE (01:54)
[2021-11-18] MEDS ORDERED: EPINEPHrine 1 MG/10 ML SYRINGE ONE ×2 (01:54→02:08)
[2021-11-18] MEDS ORDERED: SODIUM BICARBONATE 50 MEQ/50 ML SYRINGE IV ONE ×2 (01:54→02:02)
[2021-11-18] MEDS ORDERED: NOREPINEPHRINE 4 MG/4 ML VIAL IV ONE ×2 (01:54→02:15)
[2021-11-18] MEDS ORDERED: EPINEPHrine 1 MG/ML VIAL ONE ×2 (02:08→02:12)
[2021-11-18 03:33] VITALS: BP 131/35
[2021-11-18 12:30] LABS: Insulin Level Total 9.7 mcIU/mL (2.6 - 24.9)
== END 2021-11-18 02:20 | disposition expired | DRG 871 ==
LOC: N.ED 08:26 → SUATTDRO 10:03 → N.EDINP 10:03 → N.ICU 10:49
PROVIDERS: ADMIT Internal Medicine; ATTEND Internal Medicine